=== PATIENT | female | born 1955 | race Caucasian/White ===

== ENCOUNTER 2019-08-28 20:29 | Emergency (ER) | payer OTHER, SELFPAY ==
[2019-08-28 20:34] VITALS: BP 134/100; PULSE 76; RESP 16; TEMP 36.5; O2SAT 98
--- NOTE | 2019-08-28 21:04 | ED.ALLEREA ---
HPI - Allergic Reaction General Chief complaint: Allergic Reaction Stated complaint: itching Time Seen by Provider: 08/28/19 21:03 Source: patient and RN notes reviewed Mode of arrival: other Limitations: no limitations History of Present Illness HPI narrative: Pt is a 64 y/o female who presents to the ED with c/o pruritus on her neck, back, hands, and right eye for the past two days (08/26/19). Pt denies taking Benadryl for her sx d/t the medications that she is taking. She notes that she has been using hydrocortisone cream, but has had no relief of her sx. Pt denies using any new soaps, detergents, and medications. Pt notes that she had [place] food last night and is worried about the MSGs. She notes that she drank a lot of water today. Pt denies having a hx of an allergic reaction. Pt also denies calling her PCP about her sx. Pt also report decreased sleep, but denies hives, vomiting, diarrhea, and SOB. complaint: other (pruritus) Onset (ago): day(s) (2) Exposure: unknown Symptoms: other (decresed sleep) Treatment prior to arrival: other (hydrocortisone cream) Previous Allergic Reaction History: none Related Data Allergies Allergy/AdvReac Type Severity Reaction Status Date / Time iodine Allergy Severe THRAOT AND Verified 08/28/19 21:17 EYES SWELL SHELLFISH Allergy Severe THRAOT AND Uncoded 08/28/19 21:17 EYES SWELL Review of Systems Review of Systems: Narrative: CONSTITUTIONAL: Reports decreased sleep. RESPIRATORY: Denies dyspnea. GASTROINTESTINAL: Denies vomiting and diarrhea. SKIN: Reports pruritus. Denies urticaria. All systems reviewed & are unremarkable except as noted in HPI and below PMFSH Past Medical History Medical History (Updated 08/28/19 @ 22:24 by Anastasia Ontiveros MD) Arthritis Bronchitis CAD (coronary artery disease) History of angina HTN (hypertension) Hyperlipidemia Left wrist fracture Peripheral neuropathy Systemic lupus erythematosus Type II diabetes mellitus UTI (urinary tract infection) Surgical History Surgical History (Updated 08/28/19 @ 21:44 by Herminia Frederick) History of cardiac catheterization History of hysterectomy Hx of appendectomy Hx of breast reduction, elective Hx of CABG x2, 2002 Stented coronary artery x2 Family History Family History (Updated 03/21/10 @ 15:21 by DOCTOR UNKNOWN) Other Diabetes mellitus Hypertension Social History Social History (Updated 08/28/19 @ 21:45 by Herminia Frederick) Smoking packs per day: 2 Smoking cigarettes per day: 40.0 Years smoked: 31 Smoking pack-years: 62.00 Smoking status: Former smoker Tobacco type: cigarettes Second hand tobacco smoke exposure: Yes Smoking end date: 07/19/02 Alcohol intake: current Exam Narrative: Exam Narrative: GENERAL: Well-appearing, well-nourished, and in no acute distress. HEAD: Normocephalic, atraumatic. EYES: PERRLA and EOMI. ENT: Nares clear, no rhinorrhea or epistaxis. Mucous membranes moist. NECK: Supple. CHEST: No respiratory distress. Lungs are clear without wheezing. EXTREMITIES: Normal range of motion. No edema. SKIN: Warm, dry, no rash. Scattered patches of erythema overlyng her chest, back, right hand, and right eye.No urticaria. Slight erythema of right upper eyelid. No eyelid edema. NEURO: No focal deficits. Alert and oriented X3. Course Course Emergency Course: Patient presented for evaluation of itchiness, erythema to scattered parts of her body. No new nidus of allergic reaction that we can identify. No new soaps, lotions, detergents, no new exposures. Patient states she had [place] food 2 days ago after her symptoms that began. Unknown if perhaps this is due to something that she ate, but patient has no sign of anaphylaxis, no 2 system involvement. No airway compromise. Patient was given oral medication for symptom management with resolution in her symptoms. At the time of reassessment, erythema of the eyelid, hand, are gone. Patient will b
[2019-08-28 21:19] VITALS: BP 134/52; PULSE 68; RESP 15; TEMP 36.4; O2SAT 98
[2019-08-28] MEDS: predniSONE 20 MG TABLET 60 MG PO (21:35)
[2019-08-28] MEDS: FAMOTIDINE 20 MG TABLET PO (21:35)
[2019-08-28 22:35] VITALS: BP 143/51; PULSE 63; RESP 18; O2SAT 97
== END 2019-08-28 22:37 | disposition home or self-care (01) ==
PROVIDERS: Emergency Provider Emergency Medicine; PCP Family Medicine Adolescent Medicine
DX: T78.40XA Allergy, unspecified, initial encounter (principal); F17.210 Nicotine dependence, cigarettes, uncomplicated; M19.90 Unspecified osteoarthritis, unspecified site; I25.10 Atherosclerotic heart disease of native coronary artery without angina pectoris; I10 Essential (primary) hypertension; E78.5 Hyperlipidemia, unspecified; Z95.1 Presence of aortocoronary bypass graft
CPT/HCPCS: 99283; A9270; J7512

== ENCOUNTER 2019-09-22 08:59 | Outpatient (CLI) | payer OTHER, SELFPAY ==
--- NOTE | ~2019-09-22 | XR_ITS ---
EXAMINATION: XR hip LT min 2V DATE: 09/22/2019 09:21 INDICATION: Left hip pain. TECHNIQUE: 3 views of left hip were obtained. COMPARISON: Pelvis radiographs 03/21/2010 FINDINGS: There is lower lumbar dextrocurvature and severe spondylosis. No fracture. There is severe left hip osteoarthritis. IMPRESSION: 1. Severe left hip osteoarthritis. Reviewed, dictated and finalized at location A. [employer]
== END 2019-09-22 09:00 | disposition home or self-care (01) ==
LOC: ANHIMG 09:03
PROVIDERS: PCP Family Medicine Adolescent Medicine; Visit Provider Family Medicine Adolescent Medicine
DX: M25.552 Pain in left hip (principal); M16.12 Unilateral primary osteoarthritis, left hip
CPT/HCPCS: 73502

== ENCOUNTER 2019-10-09 12:40 | Outpatient (CLI) | payer OTHER, SELFPAY ==
--- NOTE | ~2019-10-09 | MR_ITS ---
EXAMINATION: MR hip LT wo con DATE: 10/09/2019 13:55 INDICATION: Left hip pain TECHNIQUE: Magnetic resonance imaging (MRI) of the affected hip was performed without intravenous co ntrast. Sequences included full-field axial PD-weighted FS FSE and T1-weighted FSE, coronal of the pe lvis with PD-weighted FS FSE, small field of view of the affected hip with axial PD-weighted FS FSE, sagittal PD-weighted FS FSE and coronal PD weighted FS FSE. Additional radial T1-weighted FGR orient ed orthogonal to the acetabular rim were obtained for evaluation of the labrum. COMPARISON: None FINDINGS: Bones/labrum/cartilage: No fracture, avascular necrosis or pathologic marrow replacing process. Severe left hip osteoarthriti s with nonuniform joint space narrowing along the cephalad aspect of the joint space with essentially [id number] apposition along the superolateral to anterosuperior margins of the joint space. Labral degeneration with macerated appearance to the anterosuperior labrum. There are large marginal osteop hytes which appear to replace significant portions of the more posterior labrum. There is subarticula r edema at the anterosuperior acetabulum with subarticular cystic change at the anteroinferior left a cetabulum. Additional prominent subarticular edema along the posterior superior aspect of the left fe moral head. Small marginal osteophytes along the left femoral head. Mild lumbar levoscoliosis with se ilene spondylosis. Fluid: Small left hip joint effusion. Physiologic amount fluid at the right hip. Soft tissues: Symmetric muscle bulk and signal in the pelvis and visualized proximal thighs. There is symmetric mil d fatty atrophy of the bilateral gluteus huan muscles. The iliopsoas, gluteal and proximal hamstri ng tendons are normal. Limited evaluation of visceral organs of the pelvis is unremarkable. Small fat -containing umbilical hernia. No pathologically enlarged pelvic/inguinal lymphadenopathy. IMPRESSION: 1. Severe left hip osteoarthritis with chronic degenerative tearing of the acetabular labrum and like ly reactive small left hip joint effusion. Reviewed, dictated and finalized at location A. IMPRESSION: 1. Severe left hip osteoarthritis with chronic degenerative tearing of the acet abular labrum and likely reactive small left hip joint effusion.
== END 2019-10-09 12:41 | disposition home or self-care (01) ==
LOC: ANHIMG 12:42
PROVIDERS: PCP Family Medicine Adolescent Medicine; Visit Provider Orthopaedic Surgery
DX: M16.12 Unilateral primary osteoarthritis, left hip (principal)
CPT/HCPCS: 73721

== ENCOUNTER 2019-10-31 10:05 | Outpatient (CLI) | payer OTHER, SELFPAY ==
--- NOTE | ~2019-10-31 | US_ITS ---
EXAMINATION:US venous doppler LE LT INDICATION:Localized swelling TECHNIQUE: Multiple grayscale, color flow and Doppler images of the left lower extremity deep venous systems were obtained and reviewed. COMPARISON:Ultrasound dated 11/28/2018 FINDINGS: The common femoral, superficial femoral and popliteal veins demonstrate normal respiratory variation, augmentation and compressibility. Color flow is also seen within the posterior tibial, pe roneal, greater saphenous and profunda veins. IMPRESSION: 1: No lower extremity deep venous thrombosis. Reviewed, dictated and finalized at location A.
== END 2019-10-31 10:06 | disposition home or self-care (01) ==
PROVIDERS: PCP Family Medicine Adolescent Medicine; Visit Provider Orthopaedic Surgery
DX: M79.605 Pain in left leg (principal); R22.42 Localized swelling, mass and lump, left lower limb
CPT/HCPCS: 93971

== ENCOUNTER 2020-03-05 15:30 | Outpatient (RCR) | payer OTHER, SELFPAY ==
--- NOTE | 2020-01-30 10:11 | PTOPEVAL ---
PHYSICAL THERAPY EVALUATION AND PLAN OF TREATMENT 01-30-2020 The PT evaluation was completed for the diagnosis of s/p L THR. Her plan of treatment is scheduled for 2x/wk for 5 weeks. Thank you for referring Katia Saleh I to [facility] Please review, sign, date and return this plan of care [place]. I agree with and certify that the following plan of care is medically necessary. Referring Physician Date Attending Provider: Cong Izaguirre MD *PT Outpatient Evaluation Start: 01/30/20 09:01 Document 01/30/20 08:55 NATALY (Rec: 01/30/20 10:11 NATALY [id number]) Outpatient Past Medical History Past Medical History Source of Past Medical History Patient Neurological History Hx Neurological Disorders No Significant History Cardiovascular History Hx Cardiac Surgery Yes: CABG Hx Coronary Stent Yes: 2015 Hx Hypertension Yes: meds Respiratory History Hx Other Respiratory Disorders Yes: SOB with exertion Gastrointestinal History Hx Gastrointestinal Disorders No Significant History Genitourinary History Hx Genitourinary Disorders No Significant History Musculoskeletal History Hx Arthritis Yes: in back Hx Back Pain Yes: chronic back pain; previous chiropractor therapy Hx Joint Replacement Yes: this surgery L THR Hx Other Musculoskeletal Disorders Yes: have been told need back surgery ~ 7yr ago Hematological History Hx Hematological Disorders No Significant History Endocrine History Hx Diabetes Yes: meds- insulin control HEENT History Hx HEENT Disorders No Significant History Other History Hx Other Surgeries Yes: B breast reduction Evaluation Information Problem Diagnosis s/p L THR Onset November Subjective Information had [facility] PT,OT services and Query Text:As Reported By Patient/ nursing; have been discharged Family [facility] HEP: was doing exercises, now just working on walking ; no hip precautions any longer; first night home from hospital, fell trying to get out of bed, getting up to go to the bathroom-- trying to help, had to call ambulance to get her up off floor; after that, slept in recliner due to to taller bed; Prior Level of Function Activity Level (Last 3 Months) 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
--- NOTE | 2020-02-20 15:59 | PCPTNOTE ---
Patient called & cancelled scheduled appointment this date due to illness.
--- NOTE | 2020-03-05 16:04 | PTOPEVAL ---
PHYSICAL THERAPY DISCHARGE 03-05-2020January has received 10 PT sessions, from January 29 to today, s/p L THR. Compared to the initial evaluation, she has improved in all areas--LE strength, hip flex and extension ROM, transfer, gait and balance. She is independent with her home exercises and agrees to discharge from PT services at this time. The goals were partially achieved; did not achieve hip flexibility, pain rating at lowest number, continues to have spasm over anterior hip and reported sleeping tolerance. Thank you for referring Katia Saleh to [facility] Please review, sign, date and return this discharge PACHECO. I agree with and certify that the following plan of care is medically necessary. Referring Physician Date Attending Provider: Cong Izaguirre, *PT Outpatient Discharge Start: 01/30/20 09:01 Document 03/05/20 15:36 NATALY (Rec: 03/05/20 16:04 NATALY [id number]) Subjective Information Celina reports: hip is better Query Text:As Reported By Patient/ and improved- less pain, leg Family stronger, can do things on my own now--in/out bed, showering , car; only thing still need help with putting on L sock; back to work; use cane or wheeled walker; have been into basement at home; feels like she is ready to be discharged from PT and to continue with her leg exercises on her own; Pain Assessment Timing of Pain Assessment Timing of Pain Assessment Assessment Pain Scale Pain Scale Used Numeric (1 - 10) Self Report Pain Assessment Left Hip(s) Reported Pain Level 0 Pain Frequency Acute Lowest Pain Intensity 0 Greatest Pain Intensity 4 Other Pain Aggravating Factors lie on L side, awaken after sleeping ~ 1 &1/2 hours, sitting 2-3 hours; Other Alleviating Interventions no pain meds; occasional use of ice Pain Score Pain Score 0: Self Report Lower Extremity Range of Motion General Lower Extremity Range of Motion Gross Lower Extremity Range of Motion supine hip flexion 80' with Comments increase pain hip; extension ( -10') with pressure and pulling; Lower Extremity Muscle Strength Testing General Lower Extremity Strength Gross Lower Extremity Strength L LE: supine: SLR x 30 reps; bridge x 25 reps; side lying hip abduction to 10' x 20 reps ; supine/sit transfer indep, without laboring to move legs; Transfer Assessment Fl
== END 2020-03-06 12:38 | disposition home or self-care (01) ==
LOC: ANHPT 15:30
PROVIDERS: PCP Family Medicine Adolescent Medicine; Visit Provider Orthopaedic Surgery Adult Reconstructive Orthopaedic Surgery
DX: Z47.1 Aftercare following joint replacement surgery (principal); Z96.642 Presence of left artificial hip joint
CPT/HCPCS: 97110; 97116; 97161

== ENCOUNTER 2020-04-17 06:54 | Outpatient (CLI) | payer OTHER, SELFPAY ==
[2020-04-17 07:53] LABS: Hemoglobin A1C 5.9 % (<5.7)
== END 2020-04-17 06:55 | disposition home or self-care (01) ==
PROVIDERS: PCP Family Medicine Adolescent Medicine; Visit Provider Family Medicine Adolescent Medicine
DX: E78.00 Pure hypercholesterolemia, unspecified (principal); I10 Essential (primary) hypertension; E11.42 Type 2 diabetes mellitus with diabetic polyneuropathy
CPT/HCPCS: 36415; 83036

== ENCOUNTER 2020-04-20 08:31 | Outpatient (CLI) | payer OTHER, MEDICARE, SELFPAY ==
[2020-04-20 09:08] LABS: Alanine Aminotransferase 17 U/L (4-35); Albumin Level 4.1 g/dL (3.5-5.1); Alkaline Phosphatase 77 U/L (38-126); Anion Gap 10 mmol/L (8-16); Aspartate Amino Transferase 24 U/L (14-36); Bilirubin,Total 0.2 mg/dL (0.2-1.3); Blood Urea Nitrogen 20 mg/dL (7-17); Calcium 9.8 mg/dL (8.4-10.2); Carbon Dioxide 28 mmol/L (22-30); Chloride 105 mmol/L (98-107); Cholesterol 145 mg/dL (0-200); Estimated Glomerular Filt Rate 45; Glucose 127 mg/dL (65-105); HDL Direct 46 mg/dL; Potassium 4.6 mmol/L (3.4-5.0); Sodium 143 mmol/L (137-145); Triglycerides 140 mg/dL (<150)
[2020-04-20 09:18] LABS: LDL Cholesterol Direct 69 mg/dL
== END 2020-04-20 08:32 | disposition home or self-care (01) ==
LOC: ANHLAB 08:34
PROVIDERS: PCP Family Medicine Adolescent Medicine; Visit Provider Family Medicine Adolescent Medicine
DX: I10 Essential (primary) hypertension (principal); E78.00 Pure hypercholesterolemia, unspecified; E11.42 Type 2 diabetes mellitus with diabetic polyneuropathy
CPT/HCPCS: 36415; 80053; 80061

== ENCOUNTER 2020-04-22 11:22 | Outpatient (CLI) | payer OTHER, SELFPAY ==
--- NOTE | ~2020-04-22 | XR_ITS ---
XR lumbar spine 2-3V DATE: 04/22/2020 11:50 INDICATION: Low back pain; no injury. TECHNIQUE: AP, lateral, coned lateral lumbosacral views COMPARISON: 09/05/2012 lumbar spine FINDINGS: There is moderate levoscoliosis of the lower thoracic and lumbar spine. There is severe degenerative disc disease throughout the lumbar and lumbosacral spine. There is degenerative change at the apophyseal joints with associated grade 1 anterolisthesis at L4-5 . The sacroiliac joints are intact, with some degenerative change. Diffuse idiopathic skeletal hyperostosis of the thoracic spine. There is extensive calcification of the abdominal aorta and iliac arteries; no abdominal aortic aneur ysm. A r hip prosthesis is noted on the lateral view. IMPRESSION: Severe degenerative disc disease throughout the lumbar and lumbosacral spine Moderate levoscoliosis of the thoracolumbar spine Reviewed, dictated and finalized at location A. IMPRESSION: Severe degenerative disc disease throughout the lumbar and lumbosac ral spine Moderate levoscoliosis of the thoracolumbar spine
== END 2020-04-22 11:23 | disposition home or self-care (01) ==
PROVIDERS: PCP Family Medicine Adolescent Medicine; Visit Provider Family Medicine Adolescent Medicine
DX: M54.5 Low back pain (principal)
CPT/HCPCS: 72100

== ENCOUNTER 2020-05-12 11:50 | Emergency (ER) | payer OTHER, MEDICARE, SELFPAY ==
[2020-05-12 12:06] VITALS: BP 133/80; PULSE 63; RESP 16; TEMP 37.1; O2SAT 99
--- NOTE | 2020-05-12 12:27 | ED.BACK ---
HPI - Back Pain/Injury General Chief Complaint: Back Pain/Injury Stated Complaint: lower back pain Time Seen by Provider: 05/12/20 12:14 Source: patient and RN notes reviewed Mode of arrival: ambulatory Limitations: no limitations History of Present Illness HPI Narrative: Patient presents today complaining of a 3-day history of right-sided mid back pain that worsens when she moves around, but decreases when she is at rest. Denies radiation of pain, loss of bowel or bladder control, numbness or tingling in the extremities. Patient does have a history of some chronic low back pain, but states this is different. Currently rates her pain 1/10 at rest, but states after she has been moving around it can, take my breath away. She does take Celebrex daily. She also has as needed [place]. Her last dose of [place] was yesterday morning, but it has not been providing much relief. Denies urinary symptoms to include dysuria, hematuria, urgency, frequency, abdominal pain. MD elicited complaint: back pain Related Data Home Medications Medication Instructions Recorded Confirmed aspirin 81 mg tablet,delayed 81 mg PO DAILY 10/03/19 05/12/20 release celecoxib 200 mg capsule 200 mg PO DAILY 10/03/19 05/12/20 epinephrine 0.3 mg/0.3 mL 0.3 mg IM ONCE PRN 10/03/19 05/12/20 injection, auto-injector fosinopril 40 mg tablet 40 mg PO DAILY 10/03/19 05/12/20 furosemide 80 mg tablet 80 mg PO QAM 10/03/19 05/12/20 gabapentin 600 mg tablet 600 mg PO DAILY 10/03/19 05/12/20 insulin glargine 100 unit/mL 100 unit SUB-Q DAILY 10/03/19 05/12/20 subcutaneous solution metformin 1,000 mg tablet 1,000 mg PO DAILY 10/03/19 05/12/20 nebivolol 20 mg tablet 20 mg PO DAILY 10/03/19 05/12/20 nifedipine 90 mg tablet,extended 90 mg PO DAILY 10/03/19 05/12/20 release nitroglycerin 0.4 mg sublingual 0.4 mg SUBLINGUAL Q5M PRN 10/03/19 05/12/20 tablet omeprazole 20 mg capsule,delayed 20 mg PO DAILY 10/03/19 05/12/20 release simvastatin 20 mg tablet 20 mg PO DAILY 10/03/19 05/12/20 sitagliptin 100 mg tablet 100 mg PO DAILY 10/03/19 05/12/20 Allergies Allergy/AdvReac Type Severity Reaction Status Date / Time iodine Allergy Severe Anaphylaxis Verified 05/12/20 12:16 SHELLFISH Allergy Severe Anaphylaxis Uncoded 05/12/20 12:16 Review of Systems Review of Systems: Narrative: CONSTITUTIONAL: Denies body aches, fever, chills, or sweats. EYES: Denies visual changes, redness, or discharge. ENT: Denies rhinorrhea, congestion, sore throat, or otalgia. CARDIOVASCULAR: Denies chest pain, palpitations, or edema. RESPIRATORY: Denies cough or dyspnea. GASTROINTESTINAL: Denies abdominal pain, nausea, vomiting, or diarrhea. GENITOURINARY: Denies dysuria or hematuria. SKIN: Denies rash, itching, or wounds. MUSCULOSKELETAL: Denies joint pain, or myalgia. + Right mid back pain NEUROLOGIC: Denies headache, numbness, tingling, or weakness. PSYCH: Denies depression or anxiety. [facility] Past Medical History Medical History (Updated 05/12/20 @ 12:29 by Julianna Ramirez, [facility], ) Arthritis Bronchitis CAD (coronary artery disease) Diabetes A1C=6.7 on 12/17/2018 Heart attack Heart disease History of angina HTN (hypertension) Hyperlipidemia Left wrist fracture Peripheral neuropathy Systemic lupus erythematosus Type II diabetes mellitus UTI (urinary tract infection) Surgical History Surgical History History of cardiac catheterization History of hysterectomy Hx of appendectomy Hx of breast reduction, elective Hx of CABG x2, 2003 Stented coronary artery x2 Family History Family History Father Heart disease Grandparent Diabetes mellitus Sibling Diabetes mellitus Cancer Heart disease Other Hypertension Social History Social History Smoking packs per day: 2 Smoking cigarettes per day: 40.0 Y
== END 2020-05-12 12:34 | disposition home or self-care (01) ==
PROVIDERS: Emergency Provider Nurse Practitioner; PCP Family Medicine Adolescent Medicine
DX: M62.830 Muscle spasm of back (principal); Z87.891 Personal history of nicotine dependence; M19.90 Unspecified osteoarthritis, unspecified site; E11.9 Type 2 diabetes mellitus without complications; I25.2 Old myocardial infarction; I25.110 Atherosclerotic heart disease of native coronary artery with unstable angina pectoris; I10 Essential (primary) hypertension; E78.5 Hyperlipidemia, unspecified; E11.42 Type 2 diabetes mellitus with diabetic polyneuropathy; M32.9 Systemic lupus erythematosus, unspecified; Z95.5 Presence of coronary angioplasty implant and graft; Z79.82 Long term (current) use of aspirin
CPT/HCPCS: 99213; G0463

== ENCOUNTER 2021-02-04 10:00 | Observation (INO) | payer OTHER, SELFPAY ==
[2021-02-04] VITALS (24 sets, daily range): BP systolic 109–166; BP diastolic 46–90; PULSE 58–78; RESP 12–24; TEMP 36.6; O2SAT 90–100; BMI 47.5
--- NOTE | ~2021-02-04 | XR_ITS ---
XR chest 2V DATE: 02/04/2021 10:29 INDICATION: Chest pain TECHNIQUE: AP and lateral views COMPARISON: 12/31/2015 AP and lateral chest FINDINGS: Status post sternotomy and coronary bypass graft surgery. Heart size appears within normal range. No pulmonary infiltrate or consolidation, pleural effusion or pulmonary vascular congestion or pneumothorax. Degenerative spurring of the thoracic spine. IMPRESSION: No active cardiopulmonary disease Reviewed, dictated and finalized at location A.
--- NOTE | 2021-02-04 10:19 | ECG_ITS ---
Measurements Intervals May Rate: 74 P: 59 OR: 168 QRS: -61 QRSD: 127 T: 63 QT: 409 QTc: 455 Interpretive Statements SINUS RHYTHM LEFT BUNDLE BRANCH BLOCK BASELINE ARTIFACT- II, V1, V3-V6 ABNORMAL ECG Electronically Signed On 02-04-2021 10:22:39 CDT by Ronaldo Pressley D.O.
[2021-02-04 10:33] LABS: Basophils Absolute Auto 0.1 K/mm3 (0.0-0.1); Basophils Percent Auto 0.6 % (0.2-1.2); Eosinophils Absolute Auto 0.4 K/mm3 (0-0.3); Eosinophils Percent Auto 3.3 % (0-4.4); Hematocrit 39.1 % (37.0-47.0); Hemoglobin 12.4 g/dL (12.0-15.0); Immature Granulocyte Absolute 0.05 K/mm3 (0.00-0.031); Immature Granulocyte Percent A 0.4 % (0-0.5); Lymphocytes Absolute Auto 3.38 K/mm3 (0.9-3.2); Lymphocytes Percent Auto 25.8 % (18.3-44.2); Mean Corpuscular HGB Conc 31.7 g/dl (32-36); Mean Corpuscular Hemoglobin 27.7 pg (26-34); Mean Corpuscular Volume 87.5 fl (80-100); Mean Platelet Volume 9.8 fl (7.4-10.4); Monocytes Absolute Auto 1.3 K/mm3 (0.1-0.6); Monocytes Percent Auto 10.1 % (2.6-8.5); Neutrophils Absolute Auto 7.8 K/mm3 (1.3-6.7); Neutrophils Percent Auto 59.8 % (45.5-73.1); Platelet Count Result 293 k/mm3 (150-375); Red Blood Count 4.47 M/mm3 (4.2-5.4); Red Cell Distribution Width 15.6 % (11.5-14.5); White Blood Count 13.1 K/mm3 (4.5-10.0)
[2021-02-04 10:44] LABS: Anion Gap 15 mmol/L (8-16); Blood Urea Nitrogen 20 mg/dL (7-17); Carbon Dioxide 21 mmol/L (22-30); Chloride 103 mmol/L (98-107); Estimated CRCL calculation 41 ml/min; Estimated Glomerular Filt Rate 41; Glucose 179 mg/dL (65-110); Potassium 4.3 mmol/L (3.4-5.0); Sodium 139 mmol/L (137-145)
[2021-02-04 10:45] LABS: Partial Thromboplastin Time 31.3 SECONDS (22.3-36.8); Prothrombin Time 12.8 Seconds (11.1-14.7)
[2021-02-04 10:55] LABS: Troponin I < 0.012 ng/mL (0.000-0.034)
[2021-02-04] MEDS: ASPIRIN 81 MG CHEWABLE TABLET 324 MG PO (10:59)
--- NOTE | 2021-02-04 11:03 | ED.CHESTPAIN ---
HPI - Chest Pain General Chief Complaint: Chest Pain Stated Complaint: chest pain Time Seen by Provider: 02/04/21 11:03 History of Present Illness HPI narrative: 66 yo female w/ h/o CAD, CABG, DM, htn presents to the ED for chest pain. SHe reports that she has had sharp chest pain across the anterior chest since last night. Severe. Radiated to left arm. Associated with nausea and intermittent SOFt. She thought it was indigestion, but also says that it feels a lot like previous [place]. Improved somewhat with nitroglycerine. Related Data Home Medications Medication Instructions Recorded Confirmed aspirin 81 mg tablet,delayed 81 mg PO DAILY 10/03/19 05/12/20 release epinephrine 0.3 mg/0.3 mL 0.3 mg IM ONCE PRN 10/03/19 05/12/20 injection, auto-injector fosinopril 40 mg tablet 40 mg PO DAILY 10/03/19 05/12/20 furosemide 80 mg tablet 80 mg PO QAM 10/03/19 05/12/20 gabapentin 600 mg tablet 600 mg PO DAILY 10/03/19 05/12/20 insulin glargine 100 unit/mL 100 unit SUB-Q DAILY 10/03/19 05/12/20 subcutaneous solution metformin 1,000 mg tablet 1,000 mg PO DAILY 10/03/19 05/12/20 nebivolol 20 mg tablet 20 mg PO DAILY 10/03/19 05/12/20 nifedipine 90 mg tablet,extended 90 mg PO DAILY 10/03/19 05/12/20 release nitroglycerin 0.4 mg sublingual 0.4 mg SUBLINGUAL Q5M PRN 10/03/19 05/12/20 tablet simvastatin 20 mg tablet 20 mg PO DAILY 10/03/19 05/12/20 sitagliptin 100 mg tablet 100 mg PO DAILY 10/03/19 05/12/20 Allergies Allergy/AdvReac Type Severity Reaction Status Date / Time iodine Allergy Severe Anaphylaxis Verified 02/04/21 10:29 SHELLFISH Allergy Severe Anaphylaxis Uncoded 05/12/20 12:16 Review of Systems Review of Systems: All systems reviewed & are unremarkable except as noted in HPI and below Constitutional: Constitutional: Denies fever(s) ENT: Denies sore throat Cardiovascular: Cardiovascular: Reports as per HPI Gastrointestinal: Gastrointestinal: Reports as per HPI, Denies abdominal pain, Reports nausea and Denies vomiting Genitourinary: Genitourinary: Reports no additional female genitourinary complaints Neurologic: Reports system reviewed and no additional complaints, except as documented [facility] Past Medical History Medical History (Updated 02/04/21 @ 16:33 by Ravi Fraga MD) Arthritis Bronchitis CAD (coronary artery disease) Diabetes A1C=6.7 on 12/17/2018 Heart attack Heart disease History of angina HTN (hypertension) Hyperlipidemia Left wrist fracture Peripheral neuropathy Systemic lupus erythematosus Type II diabetes mellitus UTI (urinary tract infection) Surgical History Surgical History History of cardiac catheterization History of hysterectomy Hx of appendectomy Hx of breast reduction, elective Hx of CABG x2, 2002 Stented coronary artery x2 Family History Family History Father Heart disease Grandparent Diabetes mellitus Sibling Diabetes mellitus Cancer Heart disease Other Hypertension Social History Social History Smoking packs per day: 2 Smoking cigarettes per day: 40.0 Years smoked: 31 Smoking pack-years: 62.00 Smoking status: Former smoker Tobacco type: cigarettes Second hand tobacco smoke exposure: Yes Smoking end date: 07/19/02 Alcohol intake: current Alcohol use details: Occasional Additional living arrangements comments: Additional occupation/education comments: [employer] Gender identity (if verbalized by the patient): Female Exam Const: General: no acute distress and alert Nutritional Appearance: obese Orientation/consciousness: patient oriented x3 HENMT: Head: normal to inspection Chest: Chest palpation & inspection: tenderness Resp: Effort & Inspection: normal respiratory effort Auscultation: clear to aus
[2021-02-04] MEDS: MORPHINE SULFATE (*CRX) 2 MG/ML INJ IV PUSH (11:47)
[2021-02-04 14:06] LABS: Troponin I < 0.012 ng/mL (0.000-0.034)
--- NOTE | 2021-02-04 14:34 | PC.NURSE ---
pt ambulated to bathroom with no difficulty
[2021-02-04] MEDS: MORPHINE SULFATE (*CRX) 4 MG/ML INJ IV PUSH (15:45)
--- NOTE | 2021-02-04 16:03 | PC.NURSE ---
Food ordered at 16:03
--- NOTE | 2021-02-04 16:21 | PC.NURSE ---
ordered patient dinner tray
[2021-02-04 17:10] LABS: Troponin I < 0.012 ng/mL (0.000-0.034)
--- NOTE | 2021-02-04 18:14 | PC.NURSE ---
Took report from ED nurse Mari 18:12
--- NOTE | 2021-02-04 18:44 | ADMGEN ---
This patient, Katia Saleh, was admitted to IMU Room 211-01. Patient/family oriented to hospital policies and general routines including ID bracelet, bed and alarms, visiting hours, pain management, procedures, bathroom and other care routines, personal items, smoking policy, room service/diet, and visiting hours. Information on how to activate the Rapid Response Team has been discussed. Patient/Family are encouraged to report perceived risks to care and to ask questions if they do not understand what they are told or what they should do.
[2021-02-04 21:09] LABS: Glucose Point of Care 138 mg/dl (65-105)
--- NOTE | 2021-02-04 23:03 | PM.IMHP ---
H&P: HPI History of Present Illness Date/Time: 02/04/21 23:03Humberto is a 66-year-old female patient was past medical history of having coronary artery disease with a total of 3 stents in 2 bypass surgery, diabetes type 2, hypertension, and acid reflux. The patient stated that her acid reflux has not been very well controlled with her omeprazole and she usually winds up taking Frances-[place] chewables as well. The patient stated approximately week or 2 ago she stopped taking her omeprazole on she noticed that she started having more heartburn. The patient developed some sharp chest pain across her anterior chest since last night. Radiated to her left arm. She said she had some nausea and intermittent chest pain. She thought it was indigestion but then it also feels like it was all heart attack as well. Her symptoms did improve somewhat with the nitroglycerin. The patient tells me that when she starts eating Ricardo crackers she noticed that she had some pain in herself gets when she was eating. The patient was given an aspirin, morphine and GI cocktail in the emergency she could not tell which thing relieved her chest pain because she said she was given them all at the same time. 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 Troponins have been negative. Chest x-ray was read as no acute cardiopulmonary disease. Creatinine is 1.3 which is typically 1.2. Glucose is 179 And 138. EKG was sinus rhythm left bundle-branch block baseline artifact. Patient is being admitted to observation status on the date of service of 02/04/2021. Chief Complaint: chest pain Review of Systems Review of Systems: All systems reviewed & are unremarkable except as noted in HPI and below Constitutional: Constitutional: Reports as per HPI and Reports no additional constitutional complaints Eyes: Eyes: Reports as per HPI and Reports no additional eye complaints ENT: Reports system reviewed and no additional complaints, except as documented and Reports Normal hearing present Cardiovascular: Cardiovascular: Reports no additional cardiovascular complaints Respiratory: Respiratory: Reports no additional respiratory complaints and Reports no additional respiratory complaints Gastrointestinal: Gastrointestinal: Reports as per HPI and Reports no additional gastrointestinal complaints Musculoskeletal: Musculoskeletal: Reports no additional musculoskeletal complaints Integumentary/Breasts: Skin/Breast: Reports system reviewed and no additional complaints, except as docu and Reports as per HPI Neurologic: Reports system reviewed and no additional complaints, except as documented, Reports as per HPI and Reports Normal hearing present Psychiatric: Psychiatric: Reports no additional psychiatric complaints and Reports as per HPI Endocrine: Endocrine: Reports no additional endocrine complaints Hematologic/Lymphatic: Hematologic/Lymphatic: Reports no additional hematologic/lymphatic complaints Allergic/Immunologic: Allergic/Immunologic: Reports no additional allergic/immunologic complaints [facility] Past Medical History Medical History (Updated 02/04/21 @ 23:13 by Katiana Benitez NP) Arthritis Bronchitis CAD (coronary artery disease) Chronic GERD Diabetes A1C=6.7 on 12/17/2018 Heart attack Heart disease History of angina HTN (hypertension) Hyperlipidemia Left wrist fracture Peripheral neuropathy Type II diabetes mellitus UTI (urinary tract infection) Surgical History Surgical History History of cardiac catheterization History of hysterectomy Hx of appendectomy Hx of breast reduction, elective Hx of CABG x2, 2002 Stented coronary artery x2 Family History Family History Father Heart disease Hypertension Acute myocardial infarction Grandparent Diabetes mellitus Sibling Diabetes mellitus Heart disease Cancer Sibling Cancer Soc
[2021-02-05] VITALS (7 sets, daily range): BP systolic 114–143; BP diastolic 51–80; PULSE 61–71; RESP 14–20; TEMP 36.6–37; O2SAT 92–99
[2021-02-05 05:53] LABS: Basophils Absolute Auto 0.1 K/mm3 (0.0-0.1); Basophils Percent Auto 0.6 % (0.2-1.2); Eosinophils Absolute Auto 0.4 K/mm3 (0-0.3); Eosinophils Percent Auto 3.9 % (0-4.4); Hematocrit 38.8 % (37.0-47.0); Hemoglobin 11.8 g/dL (12.0-15.0); Immature Granulocyte Absolute 0.03 K/mm3 (0.00-0.031); Immature Granulocyte Percent A 0.3 % (0-0.5); Lymphocytes Absolute Auto 2.62 K/mm3 (0.9-3.2); Lymphocytes Percent Auto 29.3 % (18.3-44.2); Mean Corpuscular HGB Conc 30.4 g/dl (32-36); Mean Corpuscular Hemoglobin 27.4 pg (26-34); Monocytes Percent Auto 11.1 % (2.6-8.5); Neutrophils Absolute Auto 4.9 K/mm3 (1.3-6.7); Neutrophils Percent Auto 54.8 % (45.5-73.1); Platelet Count Result 253 k/mm3 (150-375); Red Blood Count 4.31 M/mm3 (4.2-5.4); Red Cell Distribution Width 15.5 % (11.5-14.5)
[2021-02-05 05:59] LABS: Lactic Acid Reflex 1.1 mmol/L (0.7-2.1)
[2021-02-05 06:23] LABS: Hemoglobin A1C 6.7 % (<5.7)
[2021-02-05 06:24] LABS: Alanine Aminotransferase 21 U/L (4-35); Alkaline Phosphatase 80 U/L (38-126); Anion Gap 7 mmol/L (8-16); Aspartate Amino Transferase 29 U/L (14-36); Bilirubin,Total 0.3 mg/dL (0.2-1.3); Blood Urea Nitrogen 22 mg/dL (7-17); Calcium 9.5 mg/dL (8.4-10.2); Carbon Dioxide 27 mmol/L (22-30); Chloride 104 mmol/L (98-107); Estimated CRCL calculation 42 ml/min; Estimated Glomerular Filt Rate 41; Glucose 132 mg/dL (65-110); Lactate Dehydrogenase 379 U/L (313-618); Lipase 545 U/L (23-300); Magnesium 2.1 mg/dL (1.6-2.3); Phosphorus 4.7 mg/dL (2.5-4.5); Potassium 4.3 mmol/L (3.4-5.0); Sodium 138 mmol/L (137-145)
[2021-02-05 07:59] LABS: Glucose Point of Care 135 mg/dl (65-105)
[2021-02-05] MEDS: NEBIVOLOL HCL 5 MG TABLET 20 MG PO (09:54)
--- NOTE | 2021-02-05 09:54 | PM.CNCAR ---
Assessment and Plan Additional Plan this is a 66-year-old lady as I mentioned above is well known to me with coronary disease she has clinically been stable without any recent cardiac concerns or ischemic type symptoms. Her current symptoms I believe are related to esophageal reflux in that they occurred after discontinuing omeprazole, in the face of several days of ongoing symptomatology there is no evidence of acute coronary syndrome. She feels much better at this point I believe she can be discharged and does not require an ischemia workup at this time. Appropriate follow-up in my office of course is already scheduled is I have have been seeing Mrs. Saleh for a long time. Brent Naranjo MD [facility] History of Present Illness History of Present Illness Consult date/time: 02/05/21 09:54 Consult reason: chest pain Reason For Visit: chest pain Narrative: this is a 66-year-old woman who is well known to me with history of coronary artery disease who was admitted to the hospital last evening because of some chest pain that began on Wednesday of this past weekend. She states that she in addition to coronary disease has chronic problems with esophageal reflux. She has been doing extremely well with that and she decided last week to see if she could wean herself off of/discontinue omeprazole. She has been on omeprazole chronically for maintenance of her reflux disease. Regarding her coronary artery disease the patient has been doing well and in fact was just seen in my office recently for a follow-up visit and does not report any symptoms to suggest myocardial ischemia. She does she has a history of multivessel coronary disease for which she was referred for bypass grafting in the past. Unfortunately following bypass surgery she did have failure of her RCA graft and underwent PCI of her pilot station right coronary artery with stenting after that. Those procedures were done in the remote past and she has not had any recent symptoms to suggest myocardial ischemia. She is being maintained on a regimen of aspirin, nebivolol, simvastatin and fosinopril. She also takes furosemide daily for lower extremity edema. Her other principal comorbidity is morbid obesity. Her PCP I believe is Dr. Markus Laoz who has been managing her primary care needs for a long time. She states that on Wednesday of this past weekend within a couple of days after stopping omeprazole she started to have some burning retrosternal chest pain. She was concerned initially that this Represented dyspepsia but she did not remember that she had stopped her omeprazole. She says she has 1st remembered this last evening after being hospitalized. She was taking antacids including Frances-[place] with him relief of the symptoms but they would simply recur. She had the symptoms on an ongoing basis however some from Wednesday afternoon until last night. In the face of more than 48 hours of chest pain her electrocardiogram does not show any acute ischemic or injury changes and her troponin levels are negative x3 sets. She is not having any exertional symptoms such as chest pain pressure heaviness she denies any orthopnea PND accumulating edema or syncope. Once again this morning she feels well she has had resolution of the symptoms and does not offer any other other complaints. Review of Systems Constitutional: Constitutional: Reports no additional constitutional complaints Eyes: Eyes: Reports no additional eye complaints ENT: Reports system reviewed and no additional complaints, except as documented Cardiovascular: Cardiovascular: Reports as per HPI Respiratory: Respiratory: Reports no additional respiratory complaints Gastrointestinal: Gastrointestinal: Reports as per HPI Musculoskeletal: Musculoskeletal: Reports no additional musculoskeletal complaints Neurologic: Reports system reviewed and no additional complaints, except as documented Endocrine: Endocrine: Reports no additional endocrine
[2021-02-05] MEDS: GABAPENTIN 300 MG CAPSULE 600 MG PO (09:56)
[2021-02-05] MEDS: FUROSEMIDE 80 MG TABLET PO (09:57)
[2021-02-05] MEDS: lisinopriL 20 MG TABLET 40 MG PO (09:58)
[2021-02-05] MEDS: FAMOTIDINE 20 MG/2 ML VIAL IV PUSH (10:00)
[2021-02-05 10:06] LABS: Glucose Point of Care 168 mg/dl (65-105)
--- NOTE | 2021-02-05 10:42 | PM.DS ---
DS: Admitting Diagnosis Admitting Diagnosis Admitting Diagnosis: chest pain DS: Discharge Diagnosis Discharge Diagnosis (1) Chest pain: Code(s): R07.9 - Chest pain, unspecified Status: Acute Assessment and Plan: The patient stated that she has been getting more indigestion since she stopped taking her omeprazole the last week or 2. The patient stated that just now she noticed that when she eats a Ricardo cracker and goes down her esophagus she feels pain. The patient stated that she uses Frances-[place] 2 both at home. Her cardiac enzymes have been negative x3. Cardiology has been consulted. The patient has a heart history of having a total of 3 stents although to had become occluded she had 2 vessel CABG. the patient was having some reducible epigastric discomfort with palpation. I suggested that we do a gallbladder ultrasound the patient stage wanted to hold off on that as well. I also suggested a GI consult for possible EGD and the patient wanted to hold off on that as well. (2) HTN (hypertension): Code(s): I10 - Essential (primary) hypertension Status: Chronic Assessment and Plan: resume patient's Bystolic, lisinopril, and Procardia (3) Diabetes: Code(s): E11.9 - Type 2 diabetes mellitus without complications Status: Chronic Assessment and Plan: Accu-Cheks AC and HS. Continue with glargine at HS. Check A1c. Hold metformin in the event the patient would have to go for cardiac catheterization. Continue with Januvia. Continue with gabapentin (4) Chronic GERD: Code(s): K21.9 - Gastro-esophageal reflux disease without esophagitis Status: Acute Assessment and Plan: IV Pepcid for now. The patient stated that she stop taking her omeprazole about a week or 2 ago. (5) Hyperlipidemia: Code(s): E78.5 - Hyperlipidemia, unspecified Status: Chronic Assessment and Plan: Continue with Zocor (6) Heart disease: Code(s): I51.9 - Heart disease, unspecified Status: Chronic Assessment and Plan: patient had 2 stents that became occluded and then she had a 2 vessel CABG. She then had another stent later. The patient is on aspirin. DS: Summary Hospital Course Reason for hospitalization: This is a 66-year-old female patient was past medical history of having coronary artery disease with a total of 3 stents in 2 bypass surgery, diabetes type 2, hypertension, and acid reflux. The patient stated that her acid reflux has not been very well controlled with her omeprazole and she usually winds up taking Frances-[place] chewables as well. The patient stated approximately week or 2 ago she stopped taking her omeprazole on she noticed that she started having more heartburn. The patient developed some sharp chest pain across her anterior chest since last night. Radiated to her left arm. She said she had some nausea and intermittent chest pain. She thought it was indigestion but then it also feels like it was all heart attack as well. Her symptoms did improve somewhat with the nitroglycerin. The patient tells me that when she starts eating Ricardo crackers she noticed that she had some pain in herself gets when she was eating. The patient was given an aspirin, morphine and GI cocktail in the emergency she could not tell which thing relieved her chest pain because she said she was given them all at the same time. 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 Troponins have been negative. Chest x-ray was read as no acute cardiopulmonary disease. Creatinine is 1.3 which is typically 1.2. Glucose is 179 And 138. EKG was sinus rhythm left bundle-branch block baseline artifact. Patient is being admitted to observation status on the date of service of 02/04/2021. Chief Complaint: chest pain Hospital Course: Patient presented with a complaint of chest pain, 3 sets of cardiac enzymes are negative and there are no acute changes on EKG
== END 2021-02-05 11:56 | disposition home or self-care (01) ==
LOC: ANHED 16:33 → ANHIMU 17:14
PROVIDERS: Nurse Practitioner; Admitting Provider Family Medicine; Emergency Provider Emergency Medicine; PCP Family Medicine Adolescent Medicine; Visit Provider Family Medicine
DX: R07.9 Chest pain, unspecified (principal); I25.10 Atherosclerotic heart disease of native coronary artery without angina pectoris; E11.9 Type 2 diabetes mellitus without complications; I11.9 Hypertensive heart disease without heart failure; I25.2 Old myocardial infarction; K21.9 Gastro-esophageal reflux disease without esophagitis; E78.5 Hyperlipidemia, unspecified; E66.01 Morbid (severe) obesity due to excess calories; Z68.42 Body mass index [BMI] 45.0-49.9, adult; Z95.1 Presence of aortocoronary bypass graft; Z87.891 Personal history of nicotine dependence; Z95.5 Presence of coronary angioplasty implant and graft; Z79.84 Long term (current) use of oral hypoglycemic drugs
CPT/HCPCS: 36415; 71046; 80048; 80053; 82948; 83036; 83605; 83615; 83690; 83735; 84100; 84443; 84484; 85025; 85610; 85730; 93005; 96374; 96375; 96376; 99285; A9270; G0378; J2270

== ENCOUNTER 2022-02-12 05:17 | Emergency (ER) | payer OTHER, SELFPAY ==
--- NOTE | ~2022-02-12 | CT_ITS ---
EXAMINATION: CT abdomen pelvis wo con DATE: 02/12/2022 05:52 INDICATION: One week of right flank pain TECHNIQUE: Computed tomography (CT) of the abdomen and pelvis was performed without intravenous contr ast. Automated exposure control and iterative reconstruction technique were employed. The dose-length product was 1485.25 mGy-cm. COMPARISON: None FINDINGS: Mild dependent atelectasis in the bilateral lower lobes. Heart size is normal. Atherosclerotic brannon ry artery calcifications and change of median sternotomy and likely coronary artery bypass grafting. No pericardial or pleural effusion. Small calcified gallstone in the dependent aspect of the normal n ondilated gallbladder. Liver, spleen, pancreas, bilateral adrenal glands and left kidney are normal. Right kidney appears normal but is horizontally oriented. No urolithiasis or hydronephrosis. Small fa t-containing umbilical hernia. Bladder is normal. The uterus is not identified and has likely been whitmore rgically resected. The appendix is not visualized. No pericecal inflammatory change to suggest acute appendicitis. Also otherwise unremarkable with no wall thickening or obstruction. No free intraperito galdino gas or fluid. No pathologically enlarged abdominal or pelvic lymphadenopathy. Left total hip art hroplasty. Moderate thoracic and moderate to severe lumbar spondylosis including 5 mm anterolisthesis L4 on L5. There are bridging osteophytes at multiple levels in the spine, consistent with diffuse id iopathic skeletal hyperostosis (DISH). IMPRESSION: 1. No acute intra-abdominal/pelvic process. 2. Small fat-containing umbilical hernia. Reviewed, dictated and finalized at location A.
[2022-02-12 05:21] VITALS: BP 145/45; PULSE 65; RESP 18; TEMP 36.6; O2SAT 99
[2022-02-12] MEDS: ONDANSETRON INJ 4 MG/2 ML VIAL IV PUSH (05:36)
--- NOTE | 2022-02-12 05:36 | PC.NURSE ---
Pt to CT scan via stretcher at this time.
[2022-02-12 05:42] LABS: Basophils Absolute Auto 0.1 K/mm3 (0.0-0.1); Basophils Percent Auto 0.6 % (0.2-1.2); Eosinophils Absolute Auto 0.7 K/mm3 (0-0.3); Eosinophils Percent Auto 6.1 % (0-4.4); Hematocrit 38.7 % (37.0-47.0); Immature Granulocyte Absolute 0.03 K/mm3 (0.00-0.031); Immature Granulocyte Percent A 0.3 % (0-0.5); Lymphocytes Absolute Auto 3.78 K/mm3 (0.9-3.2); Lymphocytes Percent Auto 31.6 % (18.3-44.2); Mean Corpuscular Hemoglobin 28.8 pg (26-34); Mean Corpuscular Volume 92.8 fl (80-100); Mean Platelet Volume 9.9 fl (7.4-10.4); Monocytes Absolute Auto 1.2 K/mm3 (0.1-0.6); Monocytes Percent Auto 10.1 % (2.6-8.5); Neutrophils Absolute Auto 6.1 K/mm3 (1.3-6.7); Neutrophils Percent Auto 51.3 % (45.5-73.1); Platelet Count Result 283 k/mm3 (150-375); Red Blood Count 4.17 M/mm3 (4.2-5.4); Red Cell Distribution Width 14.6 % (11.5-14.5)
[2022-02-12 05:55] LABS: Alanine Aminotransferase 21 U/L (6-35); Albumin Level 4.1 g/dL (3.5-5.1); Alkaline Phosphatase 81 U/L (38-126); Anion Gap 14 mmol/L (8-16); Aspartate Amino Transferase 29 U/L (14-36); Bilirubin,Total 0.4 mg/dL (0.2-1.3); Blood Urea Nitrogen 21 mg/dL (7-17); Calcium 9.5 mg/dL (8.4-10.2); Carbon Dioxide 24 mmol/L (22-30); Chloride 104 mmol/L (98-107); Estimated CRCL calculation 41 ml/min; Estimated Glomerular Filt Rate 41; Glucose 142 mg/dL (65-110); Lipase 277 U/L (23-300); Potassium 4.3 mmol/L (3.4-5.0); Sodium 142 mmol/L (137-145)
[2022-02-12] MEDS: MORPHINE SULFATE (*CRX) 4 MG/ML INJ IV PUSH (06:02)
--- NOTE | 2022-02-12 06:19 | ED.BACK ---
HPI - Back Pain/Injury General Chief Complaint: Abdominal Pain Stated Complaint: rt flank pain Time Seen by Provider: 02/12/22 05:28 History of Present Illness HPI Narrative: 59-year-old female presenting with right flank pain on and off for the last week, it is sharp and seems to take her breath away when it comes on, associated with nausea and vomiting, no urinary symptoms or hematuria, she has never had kidney stones in the past, no increased frequency or pain with urination. No fevers or chills. Since last week the pain seems to have slurred moving down her right side. Related Data Home Medications Medication Instructions Recorded Confirmed aspirin 81 mg tablet,delayed 81 mg PO DAILY 10/03/19 02/04/21 release (Adult Low Dose Aspirin) epinephrine 0.3 mg/0.3 mL 0.3 mg IM ONCE PRN Anaphylaxis 10/03/19 02/04/21 injection, auto-injector furosemide 80 mg tablet 80 mg PO QAM 10/03/19 02/04/21 metformin 1,000 mg tablet 1,000 mg PO DAILY 10/03/19 02/04/21 nifedipine 90 mg tablet,extended 90 mg PO DAILY 10/03/19 02/04/21 release nitroglycerin 0.4 mg sublingual 0.4 mg sublingual Q5M PRN Chest 10/03/19 02/04/21 tablet Pain simvastatin 20 mg tablet 20 mg PO DAILY 10/03/19 02/04/21 sitagliptin 100 mg tablet (Januvia) 100 mg PO DAILY 10/03/19 02/04/21 Allergies Allergy/AdvReac Type Severity Reaction Status Date / Time iodine Allergy Severe Anaphylaxis Verified 02/12/22 05:26 SHELLFISH Allergy Severe Anaphylaxis Uncoded 02/12/22 05:26 Review of Systems Review of Systems: CONST: No fever. HEENT: No sore throat C/V: No chest pain RESP: No cough GI: Nausea and vomiting : No dysuria. M/S: No joint pain. SKIN: No rash. NEURO: [No headache or focal numbness or weakness] PSYCH: [No depression] [facility] Past Medical History Medical History Arthritis Bronchitis CAD (coronary artery disease) Chronic GERD Diabetes A1C=6.7 on 12/17/2018 Heart attack Heart disease History of angina HTN (hypertension) Hyperlipidemia Left wrist fracture Peripheral neuropathy Type II diabetes mellitus UTI (urinary tract infection) Surgical History Surgical History History of cardiac catheterization History of hysterectomy Hx of appendectomy Hx of breast reduction, elective Hx of CABG x2, 2002 Stented coronary artery x2 Family History Family History Father Heart disease Hypertension Acute myocardial infarction Grandparent Diabetes mellitus Sibling Diabetes mellitus Heart disease Cancer Sibling Cancer Social History Social History Social History: The patient stated that she was [employer] and just works [employer] now. 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 She has 1 child and 1 stepchild. The patient occasionally has a cocktail. The patient used to smoke but no longer does. No marijuana or illicit drugs. Patient desires to be a full code. Smoking packs per day: 2 Smoking cigarettes per day: 40.0 Years smoked: 30 Smoking pack-years: 60.00 Smoking status: Former smoker Tobacco type: cigarettes Second hand tobacco smoke exposure: No Smoking end date: 07/19/02 Alcohol intake: current Drinks per week: 2 Alcohol use details: Occasional Substance use: never Additional living arrangements comments: Additional occupation/education comments: [employer] Gender identity (if verbalized by the patient): Female Spiritual care concerns: No Exam Narrative: EXAMINATION OF ORGAN SYSTEMS/BODY AREAS: Constitutional: Vital signs per nursing GENERAL: Appears uncomfortable in bed HEAD: Normal with no signs of head trauma. EYES: EOMI, conjunctiva normal ENT: Hearing grossly intact
[2022-02-12 06:25] LABS: Appearance Urine Clear (Clear); Bilirubin Urine Negative (Negative); Blood Urine Negative (Negative); Color Urine Yellow (Yellow); Glucose Urine UA Negative (Negative); Ketones Urine Negative (Negative); Leukocyte Esterase Ur 1+ LEU/UL (Negative); Nitrate Urine Positive (Negative); Protein Urine Negative (Negative); Urobilinogen Urine 0.2 mg/dL (<2.0); pH Urine 5.5 (5.0-9.0)
[2022-02-12 06:33] LABS: Bacteria Urine Trace /hpf; Mucus Urine Rare /lpf; RBC Urine 0-2 /hpf (0-2); Squamous Epithelial Cell Urine Rare /hpf (Few); WBC Urine 31-50 /hpf
[2022-02-12 06:37] LABS: Add Urine Microscopic? YES
[2022-02-12 06:58] VITALS: BP 145/65; PULSE 58; RESP 17; O2SAT 96
--- NOTE | 2022-02-12 07:15 | PC.NURSE ---
ERP at bedside to discuss results and treatment plan with pt.
[2022-02-12] MEDS: cefTRIAXone 2 GM in SODIUM CHLORIDE 0.9% IV 100 ML 200 ML IVPB (07:35)
[2022-02-12] MEDS: KETOROLAC 15 MG/ML VIAL (*BKC) IV PUSH (07:44)
--- NOTE | 2022-02-12 07:46 | PC.NURSE ---
Pt ready for discharge. Rocephin still infusing at this time. Will discharge after completion.
[2022-02-12 08:09] VITALS: PULSE 54; RESP 15; O2SAT 95
[2022-02-12 08:14] VITALS: BP 142/49
== END 2022-02-12 08:22 | disposition home or self-care (01) ==
PROVIDERS: Emergency Provider Emergency Medicine; PCP Family Medicine Adolescent Medicine
DX: N10 Acute pyelonephritis (principal); I25.10 Atherosclerotic heart disease of native coronary artery without angina pectoris; I25.2 Old myocardial infarction; I10 Essential (primary) hypertension; E11.42 Type 2 diabetes mellitus with diabetic polyneuropathy; E78.5 Hyperlipidemia, unspecified; K21.9 Gastro-esophageal reflux disease without esophagitis; M19.90 Unspecified osteoarthritis, unspecified site; Z87.440 Personal history of urinary (tract) infections; Z90.710 Acquired absence of both cervix and uterus; Z95.1 Presence of aortocoronary bypass graft; Z95.5 Presence of coronary angioplasty implant and graft; Z87.891 Personal history of nicotine dependence; Z79.84 Long term (current) use of oral hypoglycemic drugs; Z79.82 Long term (current) use of aspirin
CPT/HCPCS: 36415; 74176; 80053; 81001; 83690; 85025; 87077; 87086; 87186; 96365; 96375; 99284; J0696; J1885; J2270; J2405

== ENCOUNTER 2022-03-13 09:14 | Outpatient (CLI) | payer OTHER, SELFPAY ==
--- NOTE | ~2022-03-13 | MM_ITS ---
EXAMINATION: MM screening jalil BI w rubi HISTORY: Screening TECHNIQUE: Craniocaudal and mediolateral oblique 3-D tomosynthesis images were obtained and synthetic 2-D images were generated. CAD analysis was submitted and interpreted. COMPARISON: 07/15/2009 BREAST PARENCHYMAL COMPOSITION: Breast composition is almost entirely fatty FINDINGS: There is stable architectural distortion lower central aspect of the left breast, likely re lated to previous breast reduction surgery. There is no evidence of suspicious mass, calcification, o r architectural distortion to suggest malignancy in either breast. There has been no suspicious inter andrea change. IMPRESSION: 1. No mammographic evidence of malignancy. 2. Recommend routine screening mammography in one year. BI-RADS Category 2: Benign finding(s). Reviewed, dictated and finalized at location A.
== END 2022-03-13 09:15 | disposition home or self-care (01) ==
LOC: ANHIMG 09:15
PROVIDERS: PCP Family Medicine Adolescent Medicine; Visit Provider Family Medicine Adolescent Medicine
DX: Z12.31 Encounter for screening mammogram for malignant neoplasm of breast (principal)
CPT/HCPCS: 77063; 77067

== ENCOUNTER 2022-07-02 11:17 | Emergency (ER) | payer OTHER, SELFPAY ==
[2022-07-02 11:38] VITALS: BP 148/78; PULSE 74; RESP 16; TEMP 36.1; O2SAT 98
--- NOTE | 2022-07-02 12:01 | ED.LOWEXIN ---
HPI - Extremity Injury (Lower) General Chief Complaint: Extremity Injury, Lower Stated Complaint: Left Foot Pain Time Seen by Provider: 07/02/22 12:01 Source: patient Mode of arrival: ambulatory Limitations: no limitations History of Present Illness HPI Narrative: 59-year-old diabetic female presenting for complaint of injury to left 4th toe yesterday. She states she felt mild pain while putting on a shoe. Later last night she noticed that toenail was loose. Denies significant pain. Reports minimal bleeding to the side of the nail. She applied a bandaid last night. Reports concern for infection due to DM. States she is unable to trim the left toenails due to the history of left hip surgery limiting ROM. Related Data Home Medications Medication Instructions Recorded Confirmed aspirin 81 mg tablet,delayed 81 mg PO DAILY 10/03/19 07/02/22 release (Adult Low Dose Aspirin) epinephrine 0.3 mg/0.3 mL 0.3 mg IM ONCE 10/03/19 07/02/22 injection, auto-injector nifedipine 90 mg tablet,extended 90 mg PO DAILY 10/03/19 07/02/22 release nitroglycerin 0.4 mg sublingual 0.4 mg sublingual Q5M 10/03/19 07/02/22 tablet sitagliptin phosphate 100 mg 100 mg PO DAILY 10/03/19 07/02/22 tablet (Januvia) [id number] 18 mg-FA 400 tablet PO 03/05/22 03/12/22 mcg-calcium 500 mg-vit K 50 mcg tablet (Women's Multivitamin) celecoxib 200 mg capsule 200 mg DAILY 07/02/22 fosinopril 40 mg tablet 40 mg DAILY 07/02/22 furosemide 80 mg tablet 80 mg DAILY 07/02/22 gabapentin 600 mg tablet 800 mg DAILY 07/02/22 insulin glargine 100 unit/mL 10 unit subcut DIRECTED 07/02/22 07/02/22 subcutaneous solution (Lantus U-100 Insulin) metformin 1,000 mg tablet 1,000 mg DAILY 07/02/22 nebivolol 20 mg tablet 20 mg DAILY 07/02/22 pantoprazole 40 mg tablet,delayed 40 mg PO DAILY 07/02/22 release simvastatin 20 mg tablet 20 mg DAILY 07/02/22 Allergies Allergy/AdvReac Type Severity Reaction Status Date / Time iodine Allergy Severe Anaphylaxis Verified 07/02/22 11:48 SHELLFISH Allergy Severe Anaphylaxis Uncoded 07/02/22 11:48 Review of Systems Review of Systems: ROS per HPI All systems reviewed & are unremarkable except as noted in HPI and below PMFSH Past Medical History Medical History CAD (coronary artery disease) Chronic GERD Heart attack History of angina Left wrist fracture Peripheral neuropathy Type II diabetes mellitus Surgical History Surgical History History of carpal tunnel surgery of right wrist (06/2016) History of hysterectomy with bilateral oophorectomy (1985) History of total left hip arthroplasty (11/2019) Hx of appendectomy (1985) Hx of breast reduction, elective (2003) Hx of CABG (2002) x2, 2003 Stented coronary artery (2015) x2 Family History Family History Father Heart disease Hypertension Acute myocardial infarction Grandparent Diabetes mellitus Sibling Diabetes mellitus Heart disease Cancer Sibling Cancer Social History Social History Social History: The patient stated that she was [employer] and just works [employer] now. 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 She has 1 child and 1 stepchild. The patient occasionally has a cocktail. The patient used to smoke but no longer does. No marijuana or illicit drugs. Patient desires to be a full code. Smoking packs per day: 2 Smoking cigarettes per day: 40.0 Years smoked: 30 Smoking pack-years: 60.00 Smoking status: Former smoker Tobacco type: cigarettes Second hand tobacco smoke exposure: No Smoking end date: 07/19/02 Alcohol intake: current Drinks per week: 2 Alcohol use details: Occasiona
== END 2022-07-02 12:32 | disposition home or self-care (01) ==
PROVIDERS: Emergency Provider Nurse Practitioner Family; PCP Family Medicine Adolescent Medicine
DX: L60.8 Other nail disorders (principal); Z87.891 Personal history of nicotine dependence; I25.110 Atherosclerotic heart disease of native coronary artery with unstable angina pectoris; K21.9 Gastro-esophageal reflux disease without esophagitis; E11.42 Type 2 diabetes mellitus with diabetic polyneuropathy; I25.2 Old myocardial infarction; Z95.5 Presence of coronary angioplasty implant and graft
CPT/HCPCS: 99213; G0463

== ENCOUNTER 2023-02-19 08:33 | Outpatient (CLI) | payer OTHER, SELFPAY ==
--- NOTE | ~2023-02-19 | XR_ITS ---
Clinical Indication: Dyspnea PA and lateral views of the chest: Comparison: 02/04/2021 Findings: The lungs are clear, without evidence of focal consolidation or pleural effusion. Cardiome diastinal silhouette is stable. Bones and soft tissues are unremarkable. Impression: Clear lungs. Reviewed, dictated and finalized at location . Impression: Clear lungs.
[2023-02-19 08:57] LABS: Hemoglobin 11.8 g/dL (12.0-15.0); Mean Corpuscular HGB Conc 31.1 g/dl (32-36); Mean Corpuscular Hemoglobin 28.7 pg (26-34); Mean Corpuscular Volume 92.5 fl (80-100); Mean Platelet Volume 9.9 fl (7.4-10.4); Platelet Count Result 282 k/mm3 (150-375); Red Blood Count 4.11 M/mm3 (4.2-5.4); Red Cell Distribution Width 14.8 % (11.5-14.5); White Blood Count 11.8 K/mm3 (4.5-10.0)
[2023-02-19 09:06] LABS: Alanine Aminotransferase 31 U/L (6-35); Albumin Level 4.3 g/dL (3.5-5.1); Alkaline Phosphatase 87 U/L (38-126); Anion Gap 12 mmol/L (8-16); Aspartate Amino Transferase 32 U/L (14-36); Bilirubin,Total 0.2 mg/dL (0.2-1.3); Blood Urea Nitrogen 24 mg/dL (7-17); Calcium 9.4 mg/dL (8.4-10.2); Carbon Dioxide 22 mmol/L (22-30); Chloride 106 mmol/L (98-107); Cholesterol 138 mg/dL (0-200); Estimated Glomerular Filt Rate 32; Glucose 177 mg/dL (65-110); HDL Direct 45 mg/dL; Potassium 4.1 mmol/L (3.4-5.0); Sodium 140 mmol/L (137-145); Triglycerides 218 mg/dL (<150)
[2023-02-19 09:17] LABS: LDL Cholesterol Direct 54 mg/dL
[2023-02-19 10:03] LABS: Hemoglobin A1C 7.6 % (<5.7)
== END 2023-02-19 08:34 | disposition home or self-care (01) ==
LOC: ANHLAB 08:35
PROVIDERS: PCP Family Medicine Adolescent Medicine; Visit Provider Family Medicine Adolescent Medicine
DX: E11.22 Type 2 diabetes mellitus with diabetic chronic kidney disease (principal); E78.00 Pure hypercholesterolemia, unspecified; I12.9 Hypertensive chronic kidney disease with stage 1 through stage 4 chronic kidney disease, or unspecified chronic kidney disease; N18.32 Chronic kidney disease, stage 3b; R06.00 Dyspnea, unspecified
CPT/HCPCS: 36415; 71046; 80053; 80061; 83036; 85027

== ENCOUNTER 2023-05-06 01:36 | Day surgery (SDC) | payer OTHER, SELFPAY ==
[2023-04-28 12:03] VITALS: BMI 46.0
[2023-05-06 07:40] VITALS: BP 147/64; PULSE 66; RESP 22; TEMP 36.7; O2SAT 93; BMI 46.6
[2023-05-06 07:55] LABS: Glucose Point of Care 111 mg/dl (65-105)
[2023-05-06] MEDS: LACTATED RINGERS 1,000 ML 150 ML IV CONT (08:22)
--- NOTE | 2023-05-06 08:54 | PM.HPGS ---
History of Present Illness History of Present Illness Consent: Risks, benefits, and alternatives have been discussed and questions answered. Patient agrees to proceed with procedure. Chief complaint: occult blood in stool Narrative: Katia Saleh is a 68 year old female presents for colonoscopy. Patient's current weight appetite and bowel movements are normal. Patient denies abdominal pain. She has had bleeding. Family history noncontributory. Recent stool was positive fit test. Suggesting occult blood in stool. She denies any pain or bleeding. Review of Systems Review of Systems: review of systems noncontributory. [facility] Past Medical History Medical History CAD (coronary artery disease) Chronic GERD Heart attack History of angina Left wrist fracture Peripheral neuropathy Type II diabetes mellitus Surgical History Surgical History History of carpal tunnel surgery of right wrist (06/2016) History of hysterectomy with bilateral oophorectomy (1985) History of total left hip arthroplasty (11/2019) Hx of appendectomy (1985) Hx of breast reduction, elective (2003) Hx of CABG (2002) x2, 2003 Stented coronary artery (2015) x2 Family History Family History Father Heart disease Hypertension Acute myocardial infarction Grandparent Diabetes mellitus Sibling Diabetes mellitus Heart disease Cancer Sibling Cancer Social History Social History (Updated 02/16/23 @ 10:25 by Jluis Irene [facility]) Social History: 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 She has 1 child and 1 stepchild. The patient occasionally has a cocktail. The patient used to smoke but no longer does. No marijuana or illicit drugs. Patient desires to be a full code. Smoking packs per day: 2 Smoking cigarettes per day: 40.0 Years smoked: 30 Smoking pack-years: 60.00 Smoking status: Never smoker Tobacco type: cigarettes Second hand tobacco smoke exposure: No Smoking end date: 07/19/02 Alcohol intake: current Drinks per week: 2 Alcohol use details: Occasional Substance use: never Substance use type: does not use Lack of Transportation: No Lack of Food: Never True Current Housing: I Have Housing Concerned About Future Housing: No Difficulty Paying Gas/Electric Bills: No Difficulty Paying for Meds: No Currently Unemployed: No Education: High School Diploma/GED Difficulty w/ Childcare or Family Care: No Living arrangements: with family Additional living arrangements comments: Occupation/Education: occupation Additional occupation/education comments: [employer] Gender identity (if verbalized by the patient): Female Spiritual care concerns: No Meds Home Medications and Allergies Home Medications Medication Instructions Recorded Confirmed Type aspirin 81 mg tablet,delayed 81 mg PO DAILY 10/03/19 04/28/23 History release (Adult Low Dose Aspirin) nitroglycerin 0.4 mg sublingual 0.4 mg sublingual Q5M PRN Angina 10/03/19 04/28/23 History tablet sitagliptin phosphate 100 mg 100 mg PO DAILY 10/03/19 04/28/23 History tablet (Januvia) ondansetron 4 mg disintegrating 4 mg PO Q8H PRN nausea and 02/12/22 04/28/23 Rx tablet vomiting #10 tabs nmtelriu-gpc-btzp 18 mg-FA 400 1 tablet PO DAILY 03/05/22 04/28/23 History mcg-calcium 500 mg-vit K 50 mcg tablet (Women's Multivitamin) gabapentin 800 mg tablet 800 mg PO TID #270 tabs 09/17/22 04/28/23 Rx pen needle, diabetic 31 gauge x #100 ea 01/18/23 02/16/23 Rx 5/16 (BD Ultra-Fine Short Pen Needle) fosinopril 40 mg tablet 40 mg PO DAILY #90 tabs 01/31/23
[2023-05-06 09:30] VITALS: BP 104/81; PULSE 56; RESP 21; O2SAT 96
[2023-05-06 09:40] VITALS: BP 120/56; PULSE 55; RESP 18; O2SAT 96
[2023-05-06 09:50] VITALS: BP 122/70; PULSE 53; RESP 20; O2SAT 100
[2023-05-06 09:55] LABS: Glucose Point of Care 110 mg/dl (65-105)
== END 2023-05-06 10:00 | disposition home or self-care (01) ==
PROVIDERS: PCP Family Medicine Adolescent Medicine; Visit Provider Internal Medicine Gastroenterology
PROC: 0DJD8ZZ Inspection of Lower Intestinal Tract, Via Natural or Artificial Opening Endoscopic (ICD-10-PCS; CPT 45378; principal; 2023-05-06 09:00)
DX: D12.3 Benign neoplasm of transverse colon (principal); K64.8 Other hemorrhoids; R19.5 Other fecal abnormalities; I25.10 Atherosclerotic heart disease of native coronary artery without angina pectoris; I25.2 Old myocardial infarction; E11.42 Type 2 diabetes mellitus with diabetic polyneuropathy; K21.9 Gastro-esophageal reflux disease without esophagitis; Z95.1 Presence of aortocoronary bypass graft; Z95.5 Presence of coronary angioplasty implant and graft; Z87.891 Personal history of nicotine dependence; Z79.82 Long term (current) use of aspirin; Z79.84 Long term (current) use of oral hypoglycemic drugs; Z79.4 Long term (current) use of insulin
CPT/HCPCS: 45385; 82948; 88305; J2704; J7120

== ENCOUNTER 2023-07-31 10:55 | Emergency (ER) | payer OTHER, SELFPAY ==
[2023-07-31 11:22] VITALS: BP 152/52; PULSE 64; RESP 16; TEMP 37.2; O2SAT 99
--- NOTE | 2023-07-31 11:37 | ED.FEMALEGU ---
HPI - Female Genitourinary General Chief complaint: Urogenital-Female Stated complaint: urinary issue Source: patient and RN notes reviewed Mode of arrival: ambulatory Limitations: no limitations History of Present Illness HPI Narrative: 68 y/o female with hx DM, HTN, CKD, CAD presented for c/o Urgency, frequency, and pressure with urinating. Onset last night. Also reports up 3 times to urinate in the night, feels like she has a full bladder but voids small amounts at a time. Pt contacted pcp exchange, Cipro Rx sent. Pt was advised to get a UA at [facility] as well. Pt states she arrived but [facility] was closed for the weekend so she checked into clinic. denies hematuria, dysuria, nausea, vomiting, abdominal pain, flank pain, constipation, diarrhea, fevers or chills. Related Data Home Medications Medication Instructions Recorded Confirmed aspirin 81 mg tablet,delayed 81 mg PO DAILY 10/03/19 07/31/23 release (Adult Low Dose Aspirin) nitroglycerin 0.4 mg sublingual 0.4 mg sublingual Q5M PRN Angina 10/03/19 07/31/23 tablet sitagliptin phosphate 100 mg 100 mg PO DAILY 10/03/19 07/31/23 tablet (Januvia) mzyhwymn-qrd-wjwo 18 mg-FA 400 1 tablet PO DAILY 03/05/22 07/31/23 mcg-calcium 500 mg-vit K 50 mcg tablet (Women's Multivitamin) epinephrine 0.3 mg/0.3 mL 0.3 mg IM PRN PRN Anaphylaxis 04/28/23 07/31/23 injection, auto-injector metformin 1,000 mg tablet 1,000 mg PO BID 04/28/23 07/31/23 nifedipine 90 mg tablet,extended 90 mg PO HS 04/28/23 07/31/23 release simvastatin 20 mg tablet 20 mg PO HS 04/28/23 07/31/23 Allergies Allergy/AdvReac Type Severity Reaction Status Date / Time iodine Allergy Severe Anaphylaxis Verified 07/31/23 11:13 SHELLFISH Allergy Severe Anaphylaxis Uncoded 07/31/23 11:13 Review of Systems Review of Systems: CONSTITUTIONAL: Denies body aches, fever, chills, or sweats. CARDIOVASCULAR: Denies chest pain, palpitations, or edema. RESPIRATORY: Denies cough or dyspnea. GASTROINTESTINAL: Denies abdominal pain, nausea, vomiting, or diarrhea. GENITOURINARY: Reports frequency, urgency, denies hematuria, flank pain SKIN: Denies rash, itching, or wounds. MUSCULOSKELETAL: Denies back pain or myalgia. [facility] Past Medical History Medical History CAD (coronary artery disease) Chronic GERD Heart attack History of angina Left wrist fracture Peripheral neuropathy Type II diabetes mellitus Surgical History Surgical History History of carpal tunnel surgery of right wrist (06/2016) History of hysterectomy with bilateral oophorectomy (1985) History of total left hip arthroplasty (11/2019) Hx of appendectomy (1985) Hx of breast reduction, elective (2003) Hx of CABG (2002) x2, 2003 Stented coronary artery (2015) x2 Family History Family History Father Heart disease Hypertension Acute myocardial infarction Grandparent Diabetes mellitus Sibling Diabetes mellitus Heart disease Cancer Sibling Cancer Social History Social History Social History: The patient stated that she was [employer] and just works [employer] now. 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 She has 1 child and 1 stepchild. The patient occasionally has a cocktail. The patient used to smoke but no longer does. No marijuana or illicit drugs. Patient desires to be a full code. Smoking packs per day: 2 Smoking cigarettes per day: 40.0 Years smoked: 30 Smoking pack-years: 60.00 Smoking status: Never smoker Tobacco type: cigarettes Second hand tobacco smoke exposure: No Smoking end date: 07/19/02 Alcohol intake: current Drinks per week: 2 Alcohol use details: Occasional Substance use: never S
== END 2023-07-31 11:56 | disposition home or self-care (01) ==
PROVIDERS: Emergency Provider Nurse Practitioner Family; PCP Family Medicine Adolescent Medicine
DX: N39.0 Urinary tract infection, site not specified (principal); B96.20 Unspecified Escherichia coli [E. coli] as the cause of diseases classified elsewhere; Z87.891 Personal history of nicotine dependence; I13.10 Hypertensive heart and chronic kidney disease without heart failure, with stage 1 through stage 4 chronic kidney disease, or unspecified chronic kidney disease; E11.22 Type 2 diabetes mellitus with diabetic chronic kidney disease; N18.9 Chronic kidney disease, unspecified; Z79.84 Long term (current) use of oral hypoglycemic drugs; K21.9 Gastro-esophageal reflux disease without esophagitis; I25.110 Atherosclerotic heart disease of native coronary artery with unstable angina pectoris; E11.42 Type 2 diabetes mellitus with diabetic polyneuropathy; Z96.642 Presence of left artificial hip joint; Z95.5 Presence of coronary angioplasty implant and graft
CPT/HCPCS: 81003; 87077; 87086; 87186; 99213; G0463

== ENCOUNTER 2024-01-20 14:54 | Emergency (ER) | payer OTHER, SELFPAY ==
[2024-01-20 15:18] VITALS: BP 151/54; PULSE 65; RESP 16; TEMP 37.5; O2SAT 98
--- NOTE | 2024-01-20 15:41 | ED.DENTAL ---
HPI - Dental/Oral General Chief complaint: Dental/Oral Stated complaint: gum pain Time Seen by Provider: 01/20/24 15:41 Source: patient Mode of arrival: ambulatory Limitations: no limitations History of Present Illness HPI Narrative: 69-year-old female presents with complaint lower dental pain and swelling for the past 4 days. States she when out for [employer] [place] and got tortilla chip stuck under her dental bridge. Since then pain and swelling have worsened. Is concerned for infection. Has not called her dentist for appointment. All systems reviewed and negative except as noted above. Related Data Home Medications Medication Instructions Recorded Confirmed aspirin 81 mg tablet,delayed 81 mg PO DAILY 10/03/19 07/31/23 release (Adult Low Dose Aspirin) nitroglycerin 0.4 mg sublingual 0.4 mg sublingual Q5M PRN Angina 10/03/19 07/31/23 tablet fqbwhwiq-hii-nirc 18 mg-FA 400 1 tablet PO DAILY 03/05/22 07/31/23 mcg-calcium 500 mg-vit K 50 mcg tablet (Women's Multivitamin) epinephrine 0.3 mg/0.3 mL 0.3 mg IM PRN PRN Anaphylaxis 04/28/23 07/31/23 injection, auto-injector metformin 1,000 mg tablet 1,000 mg PO BID 04/28/23 07/31/23 nifedipine 90 mg tablet,extended 90 mg PO HS 04/28/23 07/31/23 release simvastatin 20 mg tablet 20 mg PO HS 04/28/23 07/31/23 Allergies Allergy/AdvReac Type Severity Reaction Status Date / Time iodine Allergy Severe Anaphylaxis Verified 01/20/24 15:51 SHELLFISH Allergy Severe Anaphylaxis Uncoded 01/20/24 15:51 Review of Systems Review of Systems: CONSTITUTIONAL: Denies fever, chills, or sweats. EYES: Denies visual changes, redness, or discharge. ENT: Denies rhinorrhea, congestion, sore throat, or otalgia. Reports lower dental pain and swelling. CARDIOVASCULAR: Denies chest pain, palpitations, or edema. RESPIRATORY: Denies cough or dyspnea. GASTROINTESTINAL: Denies abdominal pain, nausea, vomiting, or diarrhea. GENITOURINARY: Denies dysuria or hematuria. SKIN: Denies rash or itching. MUSCULOSKELETAL: Denies back pain, joint pain, or myalgia. NEUROLOGIC: Denies headache, numbness, or weakness. PSYCHIATRIC: Denies anxiety or depression. All other systems reviewed are negative, except as documented in HPI. [facility] Past Medical History Medical History (Updated 01/20/24 @ 15:54 by Steph Delacruz NP) CAD (coronary artery disease) Chronic GERD Heart attack History of angina Left wrist fracture Peripheral neuropathy Type II diabetes mellitus Surgical History Surgical History History of carpal tunnel surgery of right wrist (06/2016) History of hysterectomy with bilateral oophorectomy (1985) History of total left hip arthroplasty (11/2019) Hx of appendectomy (1985) Hx of breast reduction, elective (2003) Hx of CABG (2002) x2, 2002 Stented coronary artery (2015) x2 Family History Family History Father Heart disease Hypertension Acute myocardial infarction Grandparent Diabetes mellitus Sibling Diabetes mellitus Heart disease Cancer Sibling Cancer Social History Social History Social History: The patient stated that she was [employer] and just works [employer] now. 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 She has 1 child and 1 stepchild. The patient occasionally has a cocktail. The patient used to smoke but no longer does. No marijuana or illicit drugs. Patient desires to be a full code. Smoking packs per day: 2 Smoking cigarettes per day: 40.0 Years smoked: 30 Smoking pack-years: 60.00 Smoking status: Never smoker Tobacco type: cigarettes Second hand tobacco smoke exposure: No Smoking end date: 07/19/02 Alcohol intake: current Drinks per week: 2 Alcohol use details: Occasional Sub
== END 2024-01-20 16:08 | disposition home or self-care (01) ==
PROVIDERS: Emergency Provider Nurse Practitioner Family; PCP Family Medicine Adolescent Medicine
DX: K04.7 Periapical abscess without sinus (principal); Z87.891 Personal history of nicotine dependence; I25.110 Atherosclerotic heart disease of native coronary artery with unstable angina pectoris; K21.9 Gastro-esophageal reflux disease without esophagitis; E11.42 Type 2 diabetes mellitus with diabetic polyneuropathy; I25.2 Old myocardial infarction; Z95.5 Presence of coronary angioplasty implant and graft; Z96.642 Presence of left artificial hip joint; Z79.82 Long term (current) use of aspirin
CPT/HCPCS: 99213; G0463

== ENCOUNTER 2024-02-10 07:42 | Outpatient (CLI) | payer OTHER, SELFPAY ==
[2024-02-10 09:14] LABS: Alanine Aminotransferase 18 U/L (6-35); Albumin Level 4.4 g/dL (3.5-5.1); Alkaline Phosphatase 78 U/L (38-126); Anion Gap 16 mmol/L (4-12); Aspartate Amino Transferase 24 U/L (14-36); Bilirubin,Total 0.3 mg/dL (0.2-1.3); Blood Urea Nitrogen 26 mg/dL (7-17); Carbon Dioxide 23 mmol/L (22-30); Chloride 103 mmol/L (98-107); Cholesterol 139 mg/dL (0-200); Estimated Glomerular Filt Rate 32; Glucose 115 mg/dL (65-110); HDL Direct 42 mg/dL; Potassium 4.3 mmol/L (3.4-5.0); Sodium 142 mmol/L (137-145); Triglycerides 214 mg/dL (<150)
[2024-02-10 09:25] LABS: LDL Cholesterol Direct 55 mg/dL
[2024-02-10 17:02] LABS: Microalbumin Urine Random 12.9 mg/L (0-16.7)
[2024-02-10 17:05] LABS: Creatinine Urine 40.5 mg/dL; MALB Creatinine Ratio 31.9 mg/g (0-30)
== END 2024-02-10 07:43 | disposition home or self-care (01) ==
LOC: ANHLAB 07:44
PROVIDERS: PCP Family Medicine Adolescent Medicine; Visit Provider Nurse Practitioner Family
DX: E11.22 Type 2 diabetes mellitus with diabetic chronic kidney disease (principal); E78.00 Pure hypercholesterolemia, unspecified; I12.9 Hypertensive chronic kidney disease with stage 1 through stage 4 chronic kidney disease, or unspecified chronic kidney disease; I70.0 Atherosclerosis of aorta; Z79.4 Long term (current) use of insulin; N18.9 Chronic kidney disease, unspecified
CPT/HCPCS: 36415; 80053; 80061; 82043; 83036

== ENCOUNTER 2024-04-11 13:49 | Outpatient (CLI) | payer OTHER, SELFPAY ==
--- NOTE | ~2024-04-11 | MM_ITS ---
EXAMINATION: MM screening [facility] BI w rubi HISTORY: Screening TECHNIQUE: Craniocaudal and mediolateral oblique 3-D tomosynthesis images were obtained and synthetic 2-D images were generated. CAD analysis was submitted and interpreted. COMPARISON: Comparison to multiple prior studies sequentially, with oldest reviewed study dated 06/19. BREAST PARENCHYMAL COMPOSITION: Not Dense. The breasts are almost entirely fatty. FINDINGS: There is no evidence of suspicious mass, calcification, or architectural distortion to sugg est malignancy in either breast. There has been no suspicious interval change. IMPRESSION: 1. No mammographic evidence of malignancy. 2. Recommend routine screening mammography in one year. BI-RADS Category 1: Negative Reviewed, dictated and finalized at location B.
== END 2024-04-11 13:50 | disposition home or self-care (01) ==
PROVIDERS: PCP Family Medicine Adolescent Medicine; Visit Provider Nurse Practitioner Family
DX: Z12.31 Encounter for screening mammogram for malignant neoplasm of breast (principal)
CPT/HCPCS: 77063; 77067

== ENCOUNTER 2024-07-14 14:40 | Emergency (ER) | payer OTHER, SELFPAY ==
[2024-07-14 14:53] VITALS: BP 137/65; PULSE 88; RESP 16; TEMP 36.7; O2SAT 99
--- NOTE | 2024-07-14 15:17 | ED_ITS ---
HPI - Extremity Problem General Chief complaint: Extremity Problem,Nontraumatic Stated complaint: Left Foot Pain Time Seen by Provider: 07/14/24 15:15 Source: patient Mode of arrival: ambulatory Limitations: no limitations History of Present Illness HPI Narrative: Katia is a 69-year-old female patient presenting to the clinic today with complaints of left foot pain x3 days. She reports that she is having some pain to the bottom of her foot and to the lateral foot. Feels as though that is a tearing sensation when she is stepping down. States the pain is so bad she wants to vomit. She denies any known injury to the foot. Related Data Home Medications ?Medication ?Instructions ?Recorded ?Confirmed ?Last Taken ?Type aspirin 81 mg tablet,delayed 81 mg PO DAILY 10/03/19 02/18/24 Unknown History release (Adult Low Dose Aspirin) nitroglycerin 0.4 mg sublingual 0.4 mg sublingual Q5M PRN Angina 10/03/19 02/18/24 Unknown History tablet oxxkkofl-aoh-ilix 18 mg-FA 400 1 tablet PO DAILY 03/05/22 02/18/24 Unknown History mcg-calcium 500 mg-vit K 50 mcg tablet (Women's Multivitamin) epinephrine 0.3 mg/0.3 mL 0.3 mg IM PRN PRN Anaphylaxis 04/28/23 02/18/24 Unknown History injection, auto-injector Allergies Allergy/AdvReac Type Severity Reaction Status Date / Time iodine Allergy Severe Anaphylaxis Verified 07/14/24 14:53 SHELLFISH Allergy Severe Anaphylaxis Uncoded 02/18/24 10:12 Review of Systems Review of Systems: Pertinent positives per HPI. Patient denies any fever, chills, rash, headache, visual changes, dizziness, cough, runny nose, sore throat, shortness of breath, chest pain, palpitations, nausea, vomiting, diarrhea, constipation, abdominal pain, or any urinary issues. [facility] Past Medical History Medical History Chronic GERD Heart attack Left wrist fracture Type II diabetes mellitus CAD (coronary artery disease) History of angina Peripheral neuropathy Surgical History Surgical History History of total left hip arthroplasty (11/2019) History of carpal tunnel surgery of right wrist (06/2016) History of hysterectomy with bilateral oophorectomy (1985) Hx of breast reduction, elective (2003) Hx of appendectomy (1985) Hx of CABG (2002) x2, 2002 Stented coronary artery (2015) x2 Family History Family History Father Heart disease Hypertension Acute myocardial infarction Grandparent Diabetes mellitus Sibling Diabetes mellitus Heart disease Cancer Sibling Cancer Social History Social History Social History: The patient stated that she was [employer] and just works [employer] now. 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 She has 1 child and 1 stepchild. The patient occasionally has a cocktail. The patient used to sm ashley but no longer does. No marijuana or illicit drugs. Patient desires to be a full code. Smoking packs per day: 2 Smoking cigarettes per day: 40.0 Years smoked: 30 Smoking pack-years: 60.00 Smoking status: Former smoker Tobacco type: cigarettes Second hand tobacco smoke exposure: No Smoking end date: 07/19/02 Alcohol intake: current Drinks per week: 2 Alcohol use details: Occasional Substance use: never Substance use type: does not use Lack of Transportation: No Lack of Food: Never True Current Housing: I Have Housing Concerned About Future Housing: No Difficulty Paying Gas/Electric Bills: No Difficulty Paying for Meds: No Currently Unemployed: No Education: High School Diploma/GED Difficulty w/ Childcare or Family Care: No Living arrangements: with family Additional living arrangements comments: Occupation/Education: occupation Additional occupation/education comments: [employer] Gender identity (if verbalized by the patient): Female Spiritual care concerns: No Comments At the time of my signature, I reviewed and agree with the nursing past medical, surgical, social, and family history. There is no relevant family history pertinent to the patient complaint. Exam Narrative: General: Well-developed, well nourished, in no apparent distress Head: Normocephalic, atraumatic. Cardio: Regular rate and rhythm, s1 and s2 normal, no murmur appreciated. Resp: Clear to auscultation bilaterally, no rhonchi, rales, wheezing or rubs. Musculoskeletal: No deformity, tender to palpation over the plantar fascia the left foot, pain with dorsal flexion, tenderness to palpation over the lateral foot, grossly normal range of motion, muscle strength strong and equal, peripheral pulse strong, no edema, no cyanosis, sitting in a wheelchair Course Course Emergency Course: Portions of this record may have been created with voice recognition software. Level of Care: Express Care Visit Vital Signs Vital signs: Vital Signs Temperature 36.7 C 07/14/24 14:53 Pulse Rate 88 07/14/24 14:53 Respiratory Rate 16 07/14/24 14:53 Blood Pressure 137/65 07/14/24 14:53 Pulse Oximetry 99 07/14/24 14:53 Oxygen Delivery Room Air 07/14/24 14:53 Temperature 36.7 C 07/14/24 14:53 Pulse Rate 88 07/14/24 14:53 Respiratory Rate 16 07/14/24 14:53 Blood Pressure 137/65 07/14/24 14:53 Pulse Oximetry 99 07/14/24 14:53 Oxygen Delivery Room Air 07/14/24 14:53 Vital signs reviewed MDM - Extremity (Nontraumatic) MDM Narrative Medical decision making narrative: At the time of visit patient is resting comfortably on the exam table. Patient appears to be nontoxic. Plan: I suspect patient has plantar fasciitis left foot. Prescription for short course of naproxen was sent to the pharmacy. Supportive measures were discussed with the patient and they voiced understanding discharge instructions and agrees to treatment plan. Return precautions reviewed Differential Diagnosis Differential diagnosis: Likely gout, cellulitis and other (Osteoarthritis, plantar fasciitis, heel spurs) Discharge Plan Discharge Clinical Impression: Plantar fasciitis of left foot Patient Disposition: Home, Self-Care Condition: Stable Instructions: Antibiotic Form, Plantar Fasciitis (ED), Plantar Fasciitis Exercises (ED) Additional Instructions: Rest, ice, elevate- use ice water bottle and roll on the bottom of your foot- this will ice and help stretch out the plantar facia Complete plantar fascia exercises- twice daily- more if needed Take medrol dose pack and hydrocodone as directed Bear weight as tolerated Follow up with your PCP next week if symptoms persist. Patient Language: Czech Prescriptions: New methylprednisolone [Medrol (Chace)] 4 mg tablets,dose pack See Rx Instructions PO .COMPLEX Qty: 21 0RF Rx Instructions: orally per package directions hydrocodone-acetaminophen 5-325 mg tablet 1 tablet PO Q6H PRN (Reason: pain) 3 Days Qty: 12 0RF No Action aspirin [Adult Low Dose Aspirin] 81 mg tablet,delayed release (DR/EC) 81 mg PO DAILY nitroglycerin 0.4 mg tablet, sublingual 0.4 mg SUBLINGUAL Q5M PRN (Reason: Angina) Rx Instructions: do not exceed 3 doses per episode Women's Multivitamin 18 mg-400 mcg- 500 mg-50 mcg tablet 1 tablet PO DAILY epinephrine 0.3 mg/0.3 mL Auto-Injector 0.3 mg IM PRN PRN (Reason: Anaphylaxis) Rx Instructions: do not exceed 3 doses per episode furosemide 80 mg tablet 80 mg PO DAILY Qty: 90 3RF Rx Instructions: TAKE ONE TABLET BY MOUTH ONCE DAILY nebivolol 20 mg tablet 20 mg PO DAILY Qty: 90 3RF fosinopril 40 mg tablet 40 mg PO DAILY Qty: 90 3RF Rx Instructions: TAKE ONE TABLET BY MOUTH ONCE DAILY simvastatin 20 mg tablet See Rx Instructions .ROUTE .COMPLEX Qty: 90 3RF Dose Instruction: TAKE 1 TABLET BY MOUTH EVERY DAY Rx Instructions: TAKE 1 TABLET BY MOUTH EVERY DAY nifedipine 90 mg tablet extended release 90 mg PO HS Qty: 90 3RF Rx Instructions: TAKE 1 TABLET BY MOUTH EVERY DAY gabapentin 800 mg tablet See Rx Instructions .ROUTE .COMPLEX Qty: 270 2RF Dose Instruction: TAKE 1 TABLET BY MOUTH THREE TIMES A DAY Rx Instructions: TAKE 1 TABLET BY MOUTH THREE TIMES A DAY metformin 1,000 mg tablet 500 mg PO DAILY Qty: 180 3RF pantoprazole 40 mg tablet,delayed release (DR/EC) 40 mg PO DAILY Qty: 90 3RF Rx Instructions: TAKE 1 TABLET BY MOUTH EVERY MORNING Ozempic 2 mg/dose (8 mg/3 mL) pen injector 2 mg subcut WEEKLY Qty: 3 0RF Follow-up/Referrals: Markus Grimaldo MD [Primary Care Provider] - Time of Disposition: 15:20 Quality NIHSS Nursing Documentation ED NIHSS nursing documentation: reviewed/agree
== END 2024-07-14 15:34 | disposition home or self-care (01) ==
PROVIDERS: Emergency Provider Nurse Practitioner Family; PCP Family Medicine Adolescent Medicine
DX: M72.2 Plantar fascial fibromatosis (principal); Z87.891 Personal history of nicotine dependence; I25.110 Atherosclerotic heart disease of native coronary artery with unstable angina pectoris; E11.42 Type 2 diabetes mellitus with diabetic polyneuropathy; K21.9 Gastro-esophageal reflux disease without esophagitis; I25.2 Old myocardial infarction; Z96.642 Presence of left artificial hip joint; Z95.5 Presence of coronary angioplasty implant and graft
CPT/HCPCS: 99213; G0463

== ENCOUNTER 2024-12-24 10:08 | Emergency (ER) | payer OTHER, SELFPAY ==
--- NOTE | ~2024-12-24 | XR_ITS ---
Lumbosacral Spine: AP and lateral views Clinical History: Pain Findings: No acute fracture evident. Probable minimal grade 1 anterolisthesis of L3 over L4. There is severe degenerative signs of the lumbar spine. There is severe facet arthropathy and lumbar spine. T here is mild levoscoliosis of the thoracolumbar spine. The sacroiliac joints are normally outlined. Impression: Severe degenerative spondylosis of the lumbar spine, with associated mild levoscoliosis. Reviewed, dictated and finalized at location M. Impression: Severe degenerative spondylosis of the lumbar spine, with associated mild levos coliosis.
--- OUTSIDE RECORDS SUMMARY | 2024-12-24 10:12 | XMS_ITS | Clinical Summary ---
Author Organization [facility] [address] Address [address] [place] [address] Care Team Providers Care Environmental Remediation Consultant Name Role Phone Markus Grimaldo MD Primary Care Prov ider Allergies Active Allergy Reactions Criticality Noted Date Comments Iodinated Contrast Media Anaphylaxis High 11/29/2019 Shellfish Derived Anaphylaxis High Medications aspirin (ASPIR-81) 81 mg tablet take 1 Tablet by oral route every day 0 0 5 Active Additional Information Patient taking differently:81 mgoral Nightly, Indications: prevention of thrombosis, Reported on 03/23/2023 EPINEPHrine (EPIPEN) 0.3 mg/0.3 mL injection syringe inject 0.3 milliliter by intramuscular route once as needed for anaphylaxis 0 0 5 Active Additional Information Patient taking differently: 1 Syringe subcutaneous As needed, Indications: Anaphylaxis, Reported on 03/23/2023 insulin glargine (LANTUS) 100 unit/mL injection inject by subcutaneous route as per insulin protocol 0 vial 0 5 Active Additional Information Patient taking differently: 46 Units subcutaneous Nightly, NOT TAKING, Indications: type 2 diabetes mellitus, Reported on 11/29/2019 simvastatin (ZOCOR) 20 mg tablet take 1 tablet by oral route every day at bedtime 0 0 5 Active Additional Information Patient taking differently:20 mgoral Nightly, Indications: hyperlipidemia, Reported on 03/23/2023 metFORMIN (GLUCOPHAGE) 1,000 mg tablet take 1 tablet by oral route 2 times every day with morning and evening meals 0 0 5 Active Additional Information Patient taking differently:1,000 mgoral 2 times daily with meals (bkfst, dinner), Indications: type 2 diabetes mellitus, Reported on 03/23/2023 nitroglycerin (NITROSTAT) 0.[address] 1 tablet by sublingual route at the 1st sign of attack; may repeat every 5 min until relief; if pain persists after 3 tablets in 15 min, prompt medical attention is recommended 0 0 6 Active Additional Information Patient taking differently:0.4 mgsublingual Every 5 min PRN, chest pain, Reported on 03/23/2023 fosinopril (MONOPRIL) 40 mg tablet take 1 tablet by oral route every day 0 0 5 Active Additional Information Patient taking differently:40 mgoral Daily (early AM), Indications: hypertension, Reported on 03/23/2023 omeprazole (PriLOSEC) 20 mg capsuleIndicat ions:GERD Take 1 capsule (20 mg total) by mouth electronic repair troubleshooter before breakfast Active gabapentin (NEURONTIN) 600 mg tabletIndicati ons:Neuropathi c Pain Take 1 tablet (600 mg total) by mouth 3 (three) times a day Taking 800 mg 3 times a day. Active furosemide (LASIX) 80 mg tabletIndicati ons:hypertensi on Take 1 tablet (80 mg total) by mouth electronic repair troubleshooter before breakfast 0 Active Bystolic 20 mg tablet Take 1 tablet (20 mg total) by mouth electronic repair troubleshooter before breakfast 0 Active NIFEdipine CC 90 mg 24 hr tablet TAKE 1 TABLET BY MOUTH EVERY DAY 30 tablet 10 2 Active Mounjaro 2.5 mg/0.5 mL pen injector INJECT 2.5 MG (0.5 ML) SUBCUTANEOUSLY WEEKLY FOR 4 WEEKS 4 Active Active Problems Problem Noted Date Diagnosed Date HTN (hypertension) 12/06/2019 HLD (hyperlipidemia) 12/06/2019 Type 2 diabetes mellitus 12/06/2019 Risk factors for obstructive sleep apnea 020 Primary osteoarthritis of left hip 11/21/2019 Overview (11/21/2019): Added automatically from request for surgery [id number] Morbid obesity with BMI of 45.0-49.9, adult 09/17 Coronary artery disease invo lving paimi[place] coronary artery of pa[place] heart without angina pectoris 03/30/2017 S/P CABG (coronary artery bypass graft) 03/30/20 17 Surgical History Surgery Date Site/Laterality Comments CARDIAC STENT PLACEMENT 01/2016, 08/2001 PALOMO to mid RCA, 08/2001 Stents X 2 CORONARY ARTERY BYPASS GRAFT 07/19/2002 - 08/18/2002 2 vessels per pt HI RPR ANOM CORONARY ARTERY PULM ART ORIGIN GRAFT STERNAL WOUND CLOSURE 10/17/2002 - 11/15/2002 REDUCTION MAMMAPLASTY 10/18/2003 - 11/16/2003 HYSTERECTOMY 07/19/1985 - 07/18/1986 COLONOSCOPY 07/19/2017 - 07/18/2018 Multiple-- Last 2018 JOINT REPLACEMENT HIP SURGERY Medical History Medical History Date Comments Myocardial infarction (HCC) CAD (coronary artery disease) s/ p stents X 2 in 2001, s/p CABG 2002 and PALOMO to mid RCA in 01/2016 Type 2 diabetes mellitus (HCC) D xd ~2015 At risk for obstructive sleep apnea STOP BANG= 6 on 11/29/2019; Pt states negative sleep study done ~2014 at [facility] Hypertension Dxd 2002 Hyperlipidemia Treated with sta tin Former smoker Quit 2001 Family History Medical History Relation Name Comments Other Brother 2 Alive and well; Heart attack Father Myocardial infa rction; Other Mother Unknown; Heart attack Sister 2 Other Sister 2 Alive and well; Anesthesia problems Neg Hx Relation Name Status Comments Brother 1 Alive Brother 2 Father (Age 63) FAtal [place] Mother (Age 61) Sister 1 Alive Sister 2 (Age 58) Sister 3 (Age 59) Social History Tobacco Use Types Packs/Day Years Used Date Smoking Tobacco: Former Cigarettes 2 28 1 974 - 2001 Smokeless Tobacco: Never Tobacco Cessation:Counseling Given: Not Answered Alcohol Use Standard Drinks/Week Comments Yes 3 (1 standard drink = 0.6 oz pur e alcohol) PHQ-2 Answer Date Recorded PHQ-2 Total Score (If total score is 3 or more points, staff should administer the PHQ-9) 0 12/07/2019 Comments No Sex and Gender Information Value Date Recorded Sex Assigned at Not on file 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 Gender Identity Not on file Sexual Orientation Not on file Obstetrics History Last Filed Vital Signs Vital Sign Reading Time Taken Comments Blood Pressure 130/64 03/23/2024 10:51 AM CDT Pulse 72 03/23/2024 10:51 AM CDT Temperature 36.5 C (97.7 F) 12/08/2019 2:44 AM CDT Respiratory Rate 20 12/08/2019 2:44 AM CDT Oxygen Saturation 95% 03/23/2024 10:51 AM CDT Inhaled Oxygen Concentration - - Weight 100.2 kg (221 lb) 03/23/2024 10:51 AM CDT Height 152.4 cm (5') 03/23/2024 10:51 AM CDT Body Mass Index 43.16 03/23/2024 10:51 AM CDT Plan of Treatment Health Maintenance Due Date Last Done Comments Albumin Creatinine Ratio, Urine 1954 Breast Cancer Screening-Mammogram 1954 Colon Cancer Screening-Colonoscopy 1954 Hepatitis C Screening 1954 Osteoporosis Screening-Bone Density Scan 1954 Dilated Eye Exam 1954 Foot Exam 1954 DTaP/Tdap/Td Vaccine (1 - Tdap) 1965 Hepatitis B Screening 01/14/1972 Pneumococcal vaccine 65+ (1 of 2 - PCV) 1973 Zoster Vaccine (1 of 2) 01/14/2004 Well Visit 65+ 2019 Hemoglobin A1C 05/31/2020 11/29/2019 Depression Screening 11/20/2020 11/21/2019, 11/21/19 20 Fall Risk Assessment 12/07/2020 12/08/2019 eGFR 12/07/2020 12/08/2019, 11/29/2019 Influenza Vaccine (Season Ended) 2025 Lipid Panel 03/23/2025 03/23/2024, 08/0 10/2022, 03/19/2022, Additional history exists Medical Devices Implanted Type Area Animal Keeper Head Device Identifier Shelf Expiration Date Model / Serial / Lot DepCactus Orthopaedics Inc [id number] Cup Acetabular Bi Mentum Od49mm Femoral Proximal Press Fit - Sn/A - [id number] Implanted:Qty: 1 on 12/07/2019 by Cong Izaguirre MD at [facility] Other - see comments Left: Hip Depuy Orthopaed[employer] Inc 07/19/2023 [id number] / N/A / [id number] Depuy [employer]ed[employer] Inc [id number] Liner Acetabular Bi Mentum Polyethylene Od49mm Id28mm Femoral Proximal - Sn/A - [id number] Implanted:Qty: 1 on 12/07/2019 by Cong Izaguirre MD at [facility] Other - see comments Left: Hip [employer]uy [employer] Inc 01/16/2024 [id number] / N/A / [id number] Depuy [employer] Inc [id number] Articul/Josh 28mm Cementless Hip +1.5mm 07/01 Taper Head Femoral Latex Free - Sn/A - [id number] Implanted:Qty: 1 on 12/07/2019 by Cong Izaguirre MD at [facility] Other - see comments Left: Hip [employer]uy [employer] Inc [id number] 07/18/2024 [id number] / N/A / [id number] Depuy [employer]opaed[employer] Inc [id number] Actis Collared Hip 07/01 3 Standard Offset Stem Femoral - Sn/A - [id number] Implanted:Qty: 1 on 12/07/2019 by Cong Izaguirre MD at [facility] Other - see comments Left: Hip [employer] Inc [id number] 02/15/2029 [id number] / N/A / [id number] Procedures Procedure Name Priority Date/Time Associated Diagnosis Comments POCT LIPID PANEL Routine 03/23/2024 11:0 5 AM CDT Atherosclerosis of paimi[place] coronary artery of paimi[place] heart without angina pectoris EGFR STAT 12/08/2019 2:56 AM CDT HEMOGLOBIN A1C Routine 11/29/2019 12:11 PM CDT Left hip pain from Last 3 Months or Most Recently Relevant to Health Maintenance Results * POCT lipid panel (03/23/2024 11:05 AM CDT) Cholesterol, POC 121 mg/dL Comment:GLU = 92 HDL, POC 24 mg/dL Triglycerides, POC 171 mg/dL LDL Cholesterol POC 64 mg/dL Chol/HDL Ratio, POC 2.7 Non-HDL Cholesterol, POC 98 mg/dL Cholesterol Total, POC 121 mg/dL Capillary blood 03/23/2024 1 1:05 AM CDT us Brent Naranjo MD POINT OF CARE TEST ORDER ARVIN Final Result * eGFR (12/08/2019 2:56 AM CDT) eGFR 53 mL/min/1.7 3 m2 IRIS JACKMAN Comment: Interpretive Data Reference Interval Normal >/= 90 mL/min/1.73m2 Mildly decreased* 60 - 89 mL/min/1.73m2 Mildly to moderately decreased 45 - 59 mL/min/1.73m2 Moderately to severely decreased 30 - 44 mL/min/1.73m2 Severely decreased 15 - 29 mL/min/1.73m2 Kidney Failure < 15 mL/min/1.73m2 *Relative to young adult level If -Polish multiply value by 1.16. Estimated glomerular filtration rate is determined by the CKD-EPI equation recommended by the National Kidney Foundation (KDIGO 2012 Clinical Practice Guideline for the Evaluation and Management of Chronic Kidney Disease. Kidney Intnl Suppl Jul 2012;3:1). The CKD-EPI equation should not be used for patients with unstable renal function and has not been validated in children and those over 70. Current interpretive data was last reviewed 2016. Blood specimen (specimen) 12/08/2019 2:56 AM CDT 12/08/2019 4:34 AM CDT us Cong Izaguirre MD LAB BLOOD ORDERABLES Geeta l Result [facility] [address] [facility]. Department [place] [address] * (ABNORMAL) Hemoglobin A1c (11/29/2019 12:11 PM CDT) Hgb A1C 7.2(H) 4.0 - 5.6 % IRIS JACKMAN Comment:Testing performed by : [facility], [address], [place]., [address] Estimated Average Glucose 160 mg/dL IRIS JACKMAN Comment: The ADA recommends reporting an estimated Average Glucose (eAG) with all Hemoglobin A1c results using the equation derived from a study of 507 normal and diabetic adults. Minority populations were underrepresented and children were not included. (Diabetes Care 31:9938-4892, 2008). The eAG is not equivalent to a fasting glucose. Testing performed by: [facility], [facility] [facility], [place]., [address] Blood specimen (specimen) 11/29/2019 12:11 PM CDT 11/29/2019 2:03 PM CDT Cong Izaguirre MD LAB BLOOD ORDERABLES Geeta perkins Result [facility] [address] [facility]. [place] [address] from Last 3 Months or Most Recently Relevant to Health Maintenance Insurance [facility] MEDICARE [facility] Advance Directives For more information, please contact: [phone] * Full Code (Latest Code Status on File) Date Activated Date Inactivated Comments 12/07/2019 1:53 PM 12/08/2019 1:44 PM Care Teams Environmental Remediation Consultant Relationship Specialty Start Date End Date Markus Grimaldo MD [address] [place], [place] [id number] PCP - General 10/16/16
--- OUTSIDE RECORDS SUMMARY | 2024-12-24 10:12 | XMS_ITS | Referral Summary ---
Author Organization [facility] [address] Address [address] [place] [address] Care Team Providers Care Reconnaissance Crewmember Name Role Phone Markus Grimaldo MD Primary [...] 1 capsule (20 mg total) by mouth early childhood aide classroom before breakfast Active gabapentin (NEURONTIN) 600 mg tabletIndicati ons:Neuropathi c Pain Take 1 tablet (600 mg total) by mouth 3 (three) times a day Taking 800 mg 3 times a day. Active furosemide (LASIX) 80 mg tabletIndicati ons:hypertensi on Take 1 tablet (80 mg total) by mouth early childhood aide classroom before breakfast 0 Active Bystolic 20 mg tablet Take 1 tablet (20 mg total) by mouth early childhood aide classroom before breakfast 0 Active NIFEdipine CC 90 [...] (11/21/2019): Added automatically from request for surgery [id number] Morbid obesity with BMI of 45.0-49.9, adult 09/17 Coronary artery disease invo lving [place] coronary artery of [place]ongo heart without angina pectoris 03/30/2017 S/P CABG (coronary artery bypass graft) 03/30/20 17 Social History Tobacco Use Types Packs/Day Years Used Date Smoking Tobacco: Former Cigarettes 2 28 1 974 - 2002 Smokeless Tobacco: Never Tobacco Cessation:Counseling Given: Not [...] on file 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 Gender Identity Not on file Sexual Orientation Not on file Last Filed Vital Signs Vital Sign Reading [...] 03/23/2024 10:51 AM CDT Plan of Treatment Not on file Medical Devices Implanted Type Area Sand Slinger Device Identifier Shelf Expiration Date Model / Serial / Lot Depuy Orthopaedics Inc [id number] Cup Acetabular Bi Mentum Od49mm Femoral Proximal Press Fit - Sn/A - [id number] Implanted:Qty: 1 on 12/07/2019 by Cong Izaguirre MD at [facility] Other - see comments Left: Hip [employer] Inc 07/19/2023 [id number] / N/A / [id number] Depuy [employer] [id number] Liner Acetabular Bi Mentum Polyethylene Od49mm Id28mm Femoral Proximal - Sn/A - [id number] Implanted:Qty: 1 on 12/07/2019 by Cong Izaguirre MD at [facility] Other - see comments Left: Hip [employer] 01/16/2024 [id number] / N/A / [id number] [employer] [id number] Articul/Josh 28mm Cementless Hip +1.5mm 07/01 Taper Head Femoral Latex Free - Sn/A - [id number] Implanted:Qty: 1 on 12/07/2019 by Cong Izaguirre MD at [facility] Other - see comments Left: Hip [employer] Inc [id number] 07/18/2024 [id number] / N/A / [id number] Dep[employer] [id number] Actis Collared Hip 07/01 3 Standard Offset Stem Femoral - Sn/A - [id number] Implanted:Qty: 1 on 12/07/2019 by Cong Izaguirre MD at [facility] Other - see comments Left: Hip [employer] [id number] 02/15/2029 [id number] / N/A / [id number] Procedures Procedure Name Priority Date/Time Associated Diagnosis Comments POCT LIPID PANEL Routine 03/23/2024 11:0 5 AM CDT Atherosclerosis of mor[place] coronary artery of morongo heart without angina pectoris EGFR STAT 12/08/2019 [...] Capillary blood 03/23/2024 1 1:05 AM CDT Brent Naranjo MD POINT OF CARE TEST [...] mL/min/1.73m2 *Relative to young adult level If -Namibian multiply value by 1.16. Estimated glomerular filtration [...] 2:56 AM CDT 12/08/2019 4:34 AM CDT Cong Izaguirre MD LAB BLOOD ORDERABLES Geeta perkins Result [facility] [address] [facility]. Department [place] [address] * (ABNORMAL) Hemoglobin A1c (11/29/2019 12:11 PM CDT) Hgb A1C 7.2(H) 4.0 - 5.6 % IRIS JACKMAN Comment:Testing performed by : [facility], [facility] [facility], [place]., [address] Estimated Average Glucose 160 mg/dL IRIS JACKMAN Comment: The ADA recommends reporting an estimated Average Glucose (eAG) with all Hemoglobin A1c results using the equation derived from a study of 507 normal and diabetic adults. Minority populations were underrepresented and children were not included. (Diabetes Care 31:4675-4178, 2008). The eAG is not equivalent to a fasting glucose. Testing performed by: [facility], [address], [place]., [address] Blood specimen (specimen) 11/29/2019 12:11 PM CDT 11/29/2019 2:03 PM CDT us Cong Izaguirre MD LAB BLOOD ORDERABLES Geeta perkins Result [facility] [address] [facility]. [place] [address] from Last 3 Months or Most Recently Relevant to Health Maintenance Insurance [facility] MEDICARE [facility] Advance Directives For more information, please contact: [phone] * Full Code (Latest Code Status on File) Date Activated Date Inactivated Comments 12/07/2019 1:53 PM 12/08/2019 1:44 PM Care Teams Reconnaissance Crewmember Relationship Specialty Start Date End Date Markus Grimaldo MD [address] [place] [address] PCP - General 10/16/16
--- OUTSIDE RECORDS SUMMARY | 2024-12-24 10:12 | XMS_ITS | Clinical Summary ---
Author Organization [facility] Address [address] [place] [address] Care Team Providers Care Supply Chain Associate Name Role Phone Unavailable Primary Care Provider Unavailabl e Source Comments [facility] [employer],non-owned Affiliates and Associated Physician Practices is amultiple site organization consisting of ambulatory clinics and hospital sitesin [place], [place], [place] and [place]. This disclosure is being madepursuant to the Care Everywhere program and may not contain all information available regarding this patient. Last updated 18.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 [employer] Gender Identity Not on file Sexual Orientation Not on file Plan of Treatment Health Maintenance Due Date Last Done Comments BONE DENSITY TESTING 1954 COLOGUARD (AGES 45-75) - COL ON CA SCREENING 1954 COLON MONITORING 1954 COLONOSCOPY - COLON CA SCREENING 1954 CT COLONOGRAPHY - COLON CA SCREENING 1954 Colorectal Cancer Screening 1954 FIT - COLON CA SCREENING 1954 FLEX SIG - COLON CA SCREENING 1954 LIPID TESTING 1954 MAMMOGRAM 1954 MEDICARE AWV 12 MONTHS 1954 HEPATITIS C SCREENING 01/09/1972 DTAP/TDAP/TD VACCINES (1 - Tdap) 1973 PNEUMOCOCCAL VACCINE 50+ (1 of 1 - PCV) 01/14/2004 ZOSTER VACCINE (1 of 2) 01/14/2004 COVID-19 VACCINE ( - 2023-2 5 season) 2024 DEPRESSION SCREENING 07/19/2024 INFLUENZA VACCINE (Season Ended) 2025 Respiratory Syncytial Virus (RSV) Vaccine Pt: or over 60 yrs (1 - 1-dose 75+ series) 2029 HEPATITIS B VACCINE Aged Out No longe r eligible based on patient's age to complete this topic HIB VACCINE Aged Out No longer eligi ble based on patient's age to complete this topic HPV VACCINE Aged Out No longer eligi ble based on patient's age to complete this topic MENINGOCOCCAL (Group B) VACC INE SHARED DECISION-MAKING Aged Out No longer eligibl e based on patient's age to complete this topic MENINGOCOCCAL GROUPS A/C/Y/W VACCINE Aged Out No longer eligible b ased on patient's age to complete this topic Insurance [facility] MEDICARE
[2024-12-24 10:13] VITALS: BP 125/56; PULSE 85; RESP 20; TEMP 36.6; O2SAT 98
--- OUTSIDE RECORDS SUMMARY | 2024-12-24 11:37 | XMS_ITS | Referral Summary ---
Author Organization [facility] [address] Address [address] [place] [address] Care Team Providers Care Steak Sauce Maker Name Role Phone Markus Grimaldo MD Primary [...] 1 capsule (20 mg total) by mouth speech therapist early intervention before breakfast Active gabapentin (NEURONTIN) 600 mg tabletIndicati ons:Neuropathi c Pain Take 1 tablet (600 mg total) by mouth 3 (three) times a day Taking 800 mg 3 times a day. 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 Gender Identity Not on file Sexual Orientation [...] on file Medical Devices Implanted Type Area Glass Tinter Device Identifier Shelf Expiration Date Model / Serial / Lot Depuy Orthopaed[employer] Inc [id number] Cup Acetabular Bi Mentum Od49mm Femoral Proximal Press Fit - Sn/A - [id number] Implanted:Qty: 1 on 12/07/2019 by Cong Izaguirre MD at [facility] Other - see comments Left: Hip [employer]uy [employer] Inc 07/19/2023 [id number] / N/A / [id number] Depuy [employer] Inc [id number] Liner Acetabular Bi Mentum Polyethylene Od49mm Id28mm Femoral Proximal - Sn/A - [id number] Implanted:Qty: 1 on 12/07/2019 by Cong Izaguirre MD at [facility] Other - see comments Left: Hip [employer] Inc 01/16/2024 [id number] / N/A / [id number] [employer] Inc [id number] Articul/Josh 28mm Cementless Hip +1.5mm 07/01 Taper Head Femoral Latex Free - Sn/A - [id number] Implanted:Qty: 1 on 12/07/2019 by Cong Izagurire MD at [facility] Other - see comments Left: Hip [employer] Inc [id number] 07/18/2024 [id number] / N/A / [id number] Dep[employer] Inc [id number] Actis Collared Hip 07/01 3 Standard Offset Stem Femoral - Sn/A - [id number] Implanted:Qty: 1 on 12/07/2019 by Cong Izaguirre MD at [facility] Other - see comments Left: Hip [employer] Inc [id number] 02/15/2029 [id number] / N/A / [id number] Procedures Procedure Name Priority Date/Time Associated Diagnosis Comments POCT LIPID PANEL Routine 03/23/2024 11:0 5 AM CDT Atherosclerosis of [place] coronary artery of [place] heart without angina pectoris EGFR STAT 12/08/2019 [...] mL/min/1.73m2 *Relative to young adult level If -Eritrean multiply value by 1.16. Estimated glomerular filtration [...] BLOOD ORDERABLES Geeta perkins Result [facility] [address] [facility]. Department [place] [address] * (ABNORMAL) Hemoglobin A1c (11/29/2019 12:11 PM CDT) Hgb A1C 7.2(H) 4.0 - 5.6 % IRIS JACKMAN Comment:Testing performed by : [facility], [facility] [facility], [place]., [address] Estimated Average Glucose 160 mg/dL IRIS JACKMAN Comment: The ADA recommends reporting an estimated Average Glucose (eAG) with all Hemoglobin A1c results using the equation derived from a study of 507 normal and diabetic adults. Minority populations were underrepresented and children were not included. (Diabetes Care 31:1101-7309, 2008). The eAG is not equivalent to a fasting glucose. Testing performed by: [facility], [address] [facility], [place]., [address] Blood specimen (specimen) 11/29/2019 12:11 PM CDT 11/29/2019 2:03 PM CDT us Cong Izaguirre MD LAB BLOOD ORDERABLES Geeta perkins Result [facility] [address] [facility]. Department [place] [address] from Last 3 Months or Most Recently Relevant to Health Maintenance Insurance [facility]IC[facility] Advance Directives For more information, please contact: [phone] * Full Code (Latest Code Status on File) Date Activated Date Inactivated Comments 12/07/2019 1:53 PM 12/08/2019 1:44 PM Care Teams Steak Sauce Maker Relationship Specialty Start Date End Date Markus Grimaldo MD [address] [place] [address] PCP - General 10/16/16
--- OUTSIDE RECORDS SUMMARY | 2024-12-24 11:37 | XMS_ITS | Clinical Summary ---
Author Organization [facility] Address [address] [place] [address] Care Team Providers Care Proof Technician Name Role Phone Unavailable Primary Care Provider Unavailabl e Source Comments [facility],non-owned Affiliates and Associated Physician Practices is amultiple site organization consisting of ambulatory clinics and hospital sitesin [place], [place], [place] and [place]. This disclosure is being madepursuant to the Care Everywhere program and may not contain all information available regarding this patient. 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
--- OUTSIDE RECORDS SUMMARY | 2024-12-24 11:37 | XMS_ITS | Clinical Summary ---
Author Organization [facility] [address] Address [address] [place] [address] Care Team Providers Care Pick And Shovel Man Name Role Phone Markus Grimaldo MD Primary [...] 1 capsule (20 mg total) by mouth housesmith before breakfast Active gabapentin (NEURONTIN) 600 mg tabletIndicati ons:Neuropathi c Pain Take 1 tablet (600 mg total) by mouth 3 (three) times a day Taking 800 mg 3 times a day. Active furosemide (LASIX) 80 mg tabletIndicati ons:hypertensi on Take 1 tablet (80 mg total) by mouth housesmith before breakfast 0 Active Bystolic 20 mg tablet Take 1 tablet (20 mg total) by mouth housesmith before breakfast 0 Active NIFEdipine CC 90 [...] (11/21/2019): Added automatically from request for surgery [id number] Morbid obesity with BMI of 45.0-49.9, adult 09/17 Coronary artery disease invo lving [place] coronary artery of [place] heart without angina pectoris 03/30/2017 S/P CABG (coronary artery bypass graft) 03/30/20 17 Surgical History Surgery Date Site/Laterality Comments CARDIAC STENT PLACEMENT 01/2016, 08/2001 PALOMO to mid RCA, 08/2001 Stents X 2 CORONARY ARTERY BYPASS GRAFT 07/19/2002 - 08/18/2002 2 vessels per pt [place] RPR ANOM CORONARY ARTERY PULM ART ORIGIN [...] states negative sleep study done ~2014 at [facility] Hypertension Dxd 2002 Hyperlipidemia Treated with [...] on file 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 Gender Identity Not on file Sexual Orientation [...] history exists Medical Devices Implanted Type Area Trimmer Sorter Device Identifier Shelf Expiration Date Model / Serial / Lot DepXylitol [place] [employer] [id number] Cup Acetabular Bi Mentum Od49mm Femoral Proximal Press Fit - Sn/A - [id number] Implanted:Qty: 1 on 12/07/2019 by Cong Izaguirre MD at [facility] Other - see comments Left: Hip [employer]uy Orth[employer]ed[employer] Inc 07/19/2023 [id number] / N/A / [id number] Depuy Orth[employer]ed[employer] Inc [id number] Liner Acetabular Bi Mentum Polyethylene Od49mm Id28mm Femoral Proximal - Sn/A - [id number] Implanted:Qty: 1 on 12/07/2019 by Cong Izaguirre MD at [facility] Other - see comments Left: Hip [employer]uy Orth[employer] Inc 01/16/2024 [id number] / N/A / [id number] Depuy Orth[employer] [id number] Articul/Josh 28mm Cementless Hip +1.5mm 07/01 Taper Head Femoral Latex Free - Sn/A - [id number] Implanted:Qty: 1 on 12/07/2019 by Cong Izaguirre MD at [facility] Other - see comments Left: Hip [employer] Inc [id number] 07/18/2024 [id number] / N/A / [id number] Depuy Orthopaed[employer] Inc [id number] Actis Collared Hip 07/01 3 Standard Offset Stem Femoral - Sn/A - [id number] Implanted:Qty: 1 on 12/07/2019 by Cong Izaguirre MD at [facility] Other - see comments Left: Hip [employer] [id number] 02/15/2029 [id number] / N/A / [id number] Procedures Procedure Name Priority Date/Time Associated Diagnosis Comments POCT LIPID PANEL Routine 03/23/2024 11:0 5 AM CDT Atherosclerosis of [place] coronary artery of [place] heart without angina pectoris EGFR STAT 12/08/2019 [...] mL/min/1.73m2 *Relative to young adult level If -[place] Sudanese multiply value by 1.16. Estimated glomerular filtration [...] MD LAB BLOOD ORDERABLES Geeta l Result [facility] [address] [facility]. [place] [address] * (ABNORMAL) Hemoglobin A1c (11/29/2019 12:11 PM CDT) Hgb A1C 7.2(H) 4.0 - 5.6 % IRIS JACKMAN Comment:Testing performed by : [facility], [address], [place]., [address] Estimated Average Glucose 160 mg/dL IRIS JACKMAN Comment: The ADA recommends reporting an estimated Average Glucose (eAG) with all Hemoglobin A1c results using the equation derived from a study of 507 normal and diabetic adults. Minority populations were underrepresented and children were not included. (Diabetes Care 31:0262-7603, 2008). The eAG is not equivalent to a fasting glucose. Testing performed by: [facility], [facility], [place]., [address] Blood specimen (specimen) 11/29/2019 12:11 PM CDT 11/29/2019 2:03 PM CDT Cong Izaguirre MD LAB BLOOD ORDERABLES Geeta perkins Result [facility] [address] [facility]. [place] [address] from Last 3 Months or Most Recently Relevant to Health Maintenance Insurance [facility] H[facility]/PPO Address: [address] [address] [place] [address] MEDICARE [facility] Advance Directives For more information, please contact: [phone] * Full Code (Latest Code Status on File) Date Activated Date Inactivated Comments 12/07/2019 1:53 PM 12/08/2019 1:44 PM Care Teams Pick And Shovel Man Relationship Specialty Start Date End Date Markus Grimaldo MD [address] [place], [place] [id number] PCP - General 10/16/16
[2024-12-24 11:39] LABS: Basophils Absolute Auto 0.1 K/mm3 (0.0-0.1); Basophils Percent Auto 0.5 % (0.2-1.2); Eosinophils Absolute Auto 0.4 K/mm3 (0-0.3); Eosinophils Percent Auto 4.4 % (0-4.4); Hematocrit 44.8 % (37.0-47.0); Hemoglobin 13.8 g/dL (12.0-15.0); Immature Granulocyte Absolute 0.02 K/mm3 (0.00-0.031); Immature Granulocyte Percent A 0.2 % (0-0.5); Lymphocytes Absolute Auto 2.33 K/mm3 (0.9-3.2); Lymphocytes Percent Auto 23.4 % (18.3-44.2); Mean Corpuscular HGB Conc 30.8 g/dl (32-36); Mean Corpuscular Hemoglobin 28.9 pg (26-34); Mean Corpuscular Volume 93.9 fl (80-100); Mean Platelet Volume 9.7 fl (7.4-10.4); Monocytes Absolute Auto 1.1 K/mm3 (0.1-0.6); Monocytes Percent Auto 10.9 % (2.6-8.5); Neutrophils Percent Auto 60.6 % (45.5-73.1); Platelet Count Result 316 k/mm3 (150-375); Red Blood Count 4.77 M/mm3 (4.2-5.4)
[2024-12-24 11:45] LABS: Add Urine Microscopic? YES; Appearance Urine Clear (Clear); Bacteria Urine None Seen /hpf; Bilirubin Urine Negative (Negative); Blood Urine Negative (Negative); Color Urine Yellow (Yellow); Glucose Urine UA Negative (Negative); Ketones Urine Negative (Negative); Leukocyte Esterase Ur Trace LEU/UL (Negative); Nitrate Urine Negative (Negative); Protein Urine Negative (Negative); RBC Urine 0-2 /hpf (0-2); Specific Grav Ur 1.009 (1.001-1.035); Squamous Epithelial Cell Urine None Seen /hpf (Few); Urobilinogen Urine 0.2 mg/dL (<2.0); WBC Urine 0-5 /hpf (0-3)
[2024-12-24 11:53] LABS: Alanine Aminotransferase 21 U/L (6-35); Albumin Level 4.7 g/dL (3.5-5.1); Alkaline Phosphatase 107 U/L (38-126); Anion Gap 13 mmol/L (4-12); Aspartate Amino Transferase 40 U/L (14-36); Bilirubin,Total 0.5 mg/dL (0.2-1.3); Blood Urea Nitrogen 25 mg/dL (7-17); Calcium 10.4 mg/dL (8.4-10.2); Carbon Dioxide 26 mmol/L (22-30); Chloride 103 mmol/L (98-107); Estimated CRCL calculation 21 ml/min; Estimated Glomerular Filt Rate 32; Glucose 81 mg/dL (65-110); Potassium 4.7 mmol/L (3.4-5.0); Sodium 142 mmol/L (137-145); Total Protein 8.3 g/dL (6.3-8.2)
[2024-12-24 12:16] VITALS: BP 110/58; PULSE 73; RESP 18; O2SAT 100
--- NOTE | 2024-12-24 12:32 | PC.NURSE ---
Pt to radiology for imaging @ 6794
[2024-12-24] MEDS: SODIUM CHLORIDE 0.9% IV 1,000 ML 999 ML IV CONT (12:58)
[2024-12-24] MEDS: diazePAM INJ (*CRX) 10 MG/2 ML SYRINGE 5 MG IV PUSH (12:58)
[2024-12-24] MEDS: KETOROLAC 30 MG/ML VIAL (*BKC) 15 MG IV PUSH (12:59)
--- NOTE | 2024-12-24 13:50 | ED_ITS ---
HPI - Back Pain/Injury General Chief Complaint: Back Pain/Injury Stated Complaint: i think i have a really bad kidney infection Time Seen by Provider: 12/24/24 11:23 History of Present Illness HPI Narrative: Patient is a 69-year-old female who presents to the ER with back pain. Ongoing over the last 2 weeks. Has started going down to her right hip and down her leg. Has known arthritis some issues with her back. She is concerned she may have urinary if infection. She has chronic kidney disease. She has had pyelonephritis before. Related Data Home Medications ?Medication ?Instructions ?Recorded ?Confirmed ?Last Taken ?Type aspirin 81 mg tablet,delayed 81 mg PO DAILY 10/03/19 12/04/24 Unknown History release (Adult Low Dose Aspirin) nitroglycerin 0.4 mg sublingual 0.4 mg sublingual Q5M PRN Angina 10/03/19 12/04/24 Unknown History tablet tmqpzcst-pfo-pcea 18 mg-FA 400 1 tablet PO DAILY 03/05/22 12/04/24 Unknown History mcg-calcium 500 mg-vit K 50 mcg tablet (Women's Multivitamin) epinephrine 0.3 mg/0.3 mL 0.3 mg IM PRN PRN Anaphylaxis 04/28/23 12/04/24 Unknown History injection, auto-injector Allergies Allergy/AdvReac Type Severity Reaction Status Date / Time iodine Allergy Severe Anaphylaxis Verified 12/24/24 10:10 SHELLFISH Allergy Severe Anaphylaxis Uncoded 12/24/24 10:10 Review of Systems 2 Review of Systems: All systems reviewed & are unremarkable except as noted in HPI and below Constitutional: Constitutional: Reports no additional constitutional complaints Cardiovascular: Cardiovascular: Reports no additional cardiovascular complaints Respiratory: Respiratory: Reports no additional respiratory complaints Gastrointestinal: Gastrointestinal: Reports no additional gastrointestinal complaints Musculoskeletal: Musculoskeletal: Reports no additional musculoskeletal complaints [facility] Past Medical History Medical History Chronic GERD Heart attack Left wrist fracture Type II diabetes mellitus CAD (coronary artery disease) History of angina Peripheral neuropathy Surgical History Surgical History History of total left hip arthroplasty (11/2019) History of carpal tunnel surgery of right wrist (06/2016) History of hysterectomy with bilateral oophorectomy (1985) Hx of breast reduction, elective (2003) Hx of appendectomy (1985) Hx of CABG (2002) x2, 2003 Stented coronary artery (2015) x2 Family History Family History Father Heart disease Hypertension Acute myocardial infarction Grandparent Diabetes mellitus Sibling Diabetes mellitus Heart disease Cancer Sibling Cancer Social History Social History Social History: The patient stated that she was [employer] and just works [employer] now. 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 She has 1 child and 1 stepchild. The patient occasionally has a cocktail. The patient used to smoke but no longer does. No marijuana or illicit drugs. Patient desires to be a full code. Smoking packs per day: 2 Smoking cigarettes per day: 40.0 Years smoked: 30 Smoking pack-years: 60.00 Smoking status: Former smoker Tobacco type: cigarettes Second hand tobacco smoke exposure: No Smoking end date: 07/19/02 Alcohol intake: current Drinks per week: 2 Alcohol use details: Occasional Substance use: never Substance use type: does not use Lack of Transportation: No Lack of Food: Never True Current Housing: I Have Housing Concerned About Future Housing: No Difficulty Paying Gas/Electric Bills: No Difficulty Paying for Meds: No Currently Unemployed: No Education: High School Diploma/GED Difficulty w/ Childcare or Family Care: No Living arrangements: with family Additional living arrangements comments: Occupation/Education: occupation Additional occupation/education comments: [employer] Gender identity (if verbalized by the patient): Female Spiritual care concerns: No Exam 2 Narrative: GENERAL: Well-appearing, well-nourished, and in no acute distress. HEAD: Normocephalic, atraumatic. ENT: Mucous membranes moist. CHEST: Clear to auscultation. No respiratory distress. HEART: Regular rate and rhythm.Normal peripheral pulses. Back: No midline tenderness the T/L-spine. There is significant paraspinal muscle tenderness L3 down to the SI region on the right side. EXTREMITIES: Normal range of motion. No edema. Negative straight leg raise SKIN: Warm, dry, no rash. NEURO: Alert and oriented x3. PSYCH: Normal mood and affect. Course Course Emergency Course: Lumbar strain versus sciatica. Significant improvement with Toradol and Valium. Discussed imaging and lab results. Appropriate for discharge home. Vital Signs Vital signs: Vital Signs Temperature 97.9 F 12/24/24 10:13 Pulse Rate 85 12/24/24 10:13 Respiratory Rate 20 12/24/24 10:13 Blood Pressure 125/56 L 12/24/24 10:13 Pulse Oximetry 98 12/24/24 10:13 Temperature 97.9 F 12/24/24 10:13 Pulse Rate 69 12/24/24 14:34 Respiratory Rate 18 12/24/24 14:34 Blood Pressure 121/59 L 12/24/24 14:34 Pulse Oximetry 98 12/24/24 14:34 MDM - Back Pain/Injury Lab Data 12/24/24 11:32 12/24/24 11:32 Labs: Lab Results 12/24/24 Range/Units 11:32 WBC 10.0 (4.5-10.0) K/mm3 RBC 4.77 (4.2-5.4) M/mm3 Hgb 13.8 (12.0-15.0) g/dL Hct 44.8 (37.0-47.0) % MCV 93.9 (80-100) fl MCH 28.9 (26-34) pg MCHC 30.8 L (32-36) g/dl RDW 14.0 (11.5-14.5) % Plt Count 316 (150-375) k/mm3 MPV 9.7 (7.4-10.4) fl Immature Gran % (Auto) 0.2 (0-0.5) % Neut % (Auto) 60.6 (45.5-73.1) % Lymph % (Auto) 23.4 (18.3-44.2) % [place] % (Auto) 10.9 H (2.6-8.5) % Eos % (Auto) 4.4 (0-4.4) % Baso % (Auto) 0.5 (0.2-1.2) % Lymph # (Auto) 2.33 (0.9-3.2) K/mm3 [place] # (Auto) 1.1 H (0.1-0.6) K/mm3 Eos # (Auto) 0.4 H (0-0.3) K/mm3 Baso # (Auto) 0.1 (0.0-0.1) K/mm3 Abs Immat Gran (auto) 0.02 (0.00-0.031) K/mm3 Absolute Neuts (auto) 6.0 (1.3-6.7) K/mm3 Absolute Nucleated RBC 0.000 (0.0-0.012) K/mm3 Nucleated RBC % 0.0 (0.0-0.2) % Sodium 142 (137-145) mmol/L Potassium 4.7 (3.4-5.0) mmol/L Chloride 103 (98-107) mmol/L Carbon Dioxide 26 (22-30) mmol/L Anion Gap 13 H (4-12) mmol/L BUN 25 H (7-17) mg/dL Creatinine 1.61 H (0.7-1.0) mg/dL Estim Creat Clear Calc 21 ml/min Estimated GFR 32 L (59 - ) Glucose 81 (65-110) mg/dL Calcium 10.4 H (8.4-10.2) mg/dL Total Bilirubin 0.5 (0.2-1.3) mg/dL AST 40 H (14-36) U/L ALT 21 (6-35) U/L Alkaline Phosphatase 107 (38-126) U/L Total Protein 8.3 H (6.3-8.2) g/dL Albumin 4.7 (3.5-5.1) g/dL Urine Color Yellow (Yellow) Urine Appearance Clear (Clear) Urine pH 5.0 (5.0-9.0) Ur Specific [place] 1.009 (1.001-1.035) Urine Protein Negative (Negative) mg/dL Urine Glucose (UA) Negative (Negative) mg/dL Urine Ketones Negative (Negative) mg/dL Ur Blood (Man) Negative (Negative) Urine Nitrate Negative (Negative) Urine Bilirubin Negative (Negative) Urine Urobilinogen 0.2 (<2.0) mg/dL Leukocyte Esterase Rfl Trace H (Negative) PIERRE/UL Urine RBC 0-2 (0-2) /hpf Urine WBC 0-5 (0-3) /hpf Ur Squamous Epith Cells None seen (Few) /hpf Urine Bacteria None seen /hpf Urine Casts 3-5 Imaging Data Radiologist's impression: ITS Impressions Lumbar Spine X-Ray 12/24/24 13:10 Impression: Severe degenerative spondylosis of the lumbar spine, with associated mild levoscoliosis. Discharge Plan Discharge Clinical Impression: Sciatica Patient Disposition: Home Condition: Stable Instructions: Sciatica (ED) Additional Instructions: Please return to the emergency department if you develop severe pain that is not controlled by pain medications or if you are unable to walk because of pain or weakness. Return to the emergency department immediately if you develop fevers, loss of bowel or bladder control (dribbling of urine or having accidents you wouldn't normally have), inability to urinate, numbness of your genital or anal area, or weakness/numbness of your legs or arms as these could all be signs of a serious medical emergency. Patient Language: Tuvaluan Prescriptions: New tizanidine 2 mg capsule 2 mg PO Q8H PRN (Reason: muscle spasticity) Qty: 14 0RF No Action terbinafine HCl 250 mg tablet 250 mg PO DAILY Qty: 90 0RF aspirin [Adult Low Dose Aspirin] 81 mg tablet,delayed release (DR/EC) 81 mg PO DAILY nitroglycerin 0.4 mg tablet, sublingual 0.4 mg SUBLINGUAL Q5M PRN (Reason: Angina) Rx Instructions: do not exceed 3 doses per episode Women's Multivitamin 18 mg-400 mcg- 500 mg-50 mcg tablet 1 tablet PO DAILY epinephrine 0.3 mg/0.3 mL Auto-Injector 0.3 mg IM PRN PRN (Reason: Anaphylaxis) Rx Instructions: do not exceed 3 doses per episode furosemide 80 mg tablet 80 mg PO DAILY Qty: 90 3RF Rx Instructions: TAKE ONE TABLET BY MOUTH ONCE DAILY nebivolol 20 mg tablet 20 mg PO DAILY Qty: 90 3RF fosinopril 40 mg tablet 40 mg PO DAILY Qty: 90 3RF Rx Instructions: TAKE ONE TABLET BY MOUTH ONCE DAILY simvastatin 20 mg tablet See Rx Instructions .ROUTE .COMPLEX Qty: 90 3RF Dose Instruction: TAKE 1 TABLET BY MOUTH EVERY DAY Rx Instructions: TAKE 1 TABLET BY MOUTH EVERY DAY nifedipine 90 mg tablet extended release 90 mg PO HS Qty: 90 3RF Rx Instructions: TAKE 1 TABLET BY MOUTH EVERY DAY pantoprazole 40 mg tablet,delayed release (DR/EC) 40 mg PO DAILY Qty: 90 3RF Rx Instructions: TAKE 1 TABLET BY MOUTH EVERY MORNING Ozempic 2 mg/dose (8 mg/3 mL) pen injector 2 mg subcut WEEKLY Qty: 3 0RF Linzess 145 mcg capsule 145 mcg PO DAILY Qty: 90 3RF gabapentin 800 mg tablet See Rx Instructions .ROUTE .COMPLEX Qty: 270 2RF Dose Instruction: TAKE 1 TABLET BY MOUTH THREE TIMES A DAY Rx Instructions: TAKE 1 TABLET BY MOUTH THREE TIMES A DAY Follow-up/Referrals: Dior Cavanaugh, RULA [Primary Care Provider] - 1 Week
[2024-12-24 14:34] VITALS: BP 121/59; PULSE 69; RESP 18; O2SAT 98
== END 2024-12-24 15:34 | disposition home or self-care (01) ==
PROVIDERS: Emergency Provider Emergency Medicine; PCP Nurse Practitioner Family
DX: M54.41 Lumbago with sciatica, right side (principal); K21.9 Gastro-esophageal reflux disease without esophagitis; I25.2 Old myocardial infarction; E11.9 Type 2 diabetes mellitus without complications; I25.10 Atherosclerotic heart disease of native coronary artery without angina pectoris; Z79.82 Long term (current) use of aspirin; M19.90 Unspecified osteoarthritis, unspecified site; N18.9 Chronic kidney disease, unspecified; Z98.61 Coronary angioplasty status; Z95.1 Presence of aortocoronary bypass graft
CPT/HCPCS: 36415; 72100; 80053; 81001; 85025; 96361; 96374; 96375; 99284; J1885; J3360; J7030

== ENCOUNTER 2025-02-26 13:44 | Outpatient (CLI) | payer OTHER, SELFPAY ==
--- NOTE | ~2025-02-26 | DEXA_ITS ---
Bone Density Report Name: NATALY HERBERT I Age: 70 Sex: Female Ethnicity: White Date of : 1955 Indication: postmenopausal; screening for osteoporosis; parental hip fracture; height loss; prior fracture; hysterectomy; Referring Provider: FITO RHOADES Study: Bone densitometry was performed. Exam Date: February 26, 2025 Accession number: [id number] Bone Density: Region BMD T-score Z-score Classification AP Spine(L1-L4) 1.515 4.3 6.4 Normal Femoral Neck (Right) 0.962 1.0 2.9 Normal Total Hip (Right) 1.117 1.4 3.0 Normal World Health Organization criteria for BMD impression classify patients as: Normal (T-score at or above -1.0), Osteopenia (T-score between -1.0 and -2.5), or Osteoporosis (T-score at or below -2.5). 10-year Fracture Risk: FRAX not reported because: All T-scores for Spine Total, Hip Total, Femoral Neck at or above -1.0 Prior hip or vertebral fracture Clinical Information Provided by Patient: Have had a previous hip or vertebral fracture Has had a low trauma fracture Parent has had a hip fracture Has the following medical conditions: Hysterectomy Patient maximum height was 61.0 Menopause Age: 28 No regular weight bearing exercise Drinks caffeinated beverages Onset of menses at age 13 Number of children 1 Impression: The patient has normal bone mass. The patient has risk factors, including: parental hip fracture, previous fracture. Discussion: INCREASED RISK OF FRACTURE DUE TO HISTORY OF FRACTURE. The patient's previous fracture puts the patient at high risk of a future fracture. In untreated patients, the risk of osteoporotic fracture increases approximately two-fold for each 1.0 SD decrease in T-score. Low bone density is not the only risk factor for fracture; also consider factors such as patient's age, frailty or poor health, risk of falling, risk of injury, previous osteoporotic fracture, family history of osteoporosis, cigarette smoking, low body weight, etc. Not everyone with a low trauma fracture has osteoporosis; osteomalacia and other metabolic bone disorders should also be considered. Patients who have osteoporosis should be evaluated for specific diseases and conditions (secondary causes) that may cause or contribute to bone loss and fracture risk. National Osteoporosis Foundation (NOF) recommends pharmacologic intervention for patients with a prior hip or vertebral fracture regardless of BMD T-score. The patient should follow a healthful lifestyle (good nutrition with adequate calcium and vitamin D, and appropriate weight-bearing exercise). Follow-Up: Consider a repeat BMD and Vertebral Fracture Assessment (VFA) exam in 2 years or sooner if medically necessary, to reassess this patient's status. Reported by: RAFFAELE on 02/26/2025 2:27:00 PM. Reviewed, dictated and finalized at location A.
--- OUTSIDE RECORDS SUMMARY | 2025-02-26 14:05 | XMS_ITS | Clinical Summary ---
Author Organization [facility] [address] Address [address] [place] [address] Care Team Providers Care Recovery Collector Name Role Phone Markus Grimaldo MD Primary [...] 1 capsule (20 mg total) by mouth hazardous materials analyst before breakfast Active gabapentin (NEURONTIN) 600 mg tabletIndicati ons:Neuropathi c Pain Take 1 tablet (600 mg total) by mouth 3 (three) times a day Taking 800 mg 3 times a day. Active furosemide (LASIX) 80 mg tabletIndicati ons:hypertensi on Take 1 tablet (80 mg total) by mouth hazardous materials analyst before breakfast 0 Active Bystolic 20 mg tablet Take 1 tablet (20 mg total) by mouth hazardous materials analyst before breakfast 0 Active NIFEdipine CC 90 [...] (11/21/2019): Added automatically from request for surgery [id number] Morbid obesity with BMI of 45.0-49.9, adult 09/17 Coronary artery disease invo lving [place] coronary artery of [place] heart without angina pectoris 03/30/2017 S/P CABG (coronary artery bypass graft) 03/30/20 17 Surgical History Surgery Date Site/Laterality Comments CARDIAC STENT PLACEMENT 01/2016, 08/2001 PALOMO to mid RCA, 08/2001 Stents X 2 CORONARY ARTERY BYPASS GRAFT 07/19/2002 - 08/18/2002 2 vessels per pt [place] RPR ANOM CORONARY ARTERY PULM ART ORIGIN GRAFT STERNAL WOUND CLOSURE 10/17/2002 - 11/15/2002 REDUCTION MAMMAPLASTY 10/18/2003 - 11/16/2003 HYSTERECTOMY 07/19/1985 - 07/18/1986 COLONOSCOPY 07/19/2017 - 07/18/2018 Multiple-- Last 2017 JOINT REPLACEMENT HIP SURGERY Medical History Medical History Date Comments Myocardial infarction (HCC) CAD (coronary artery disease) s/ p stents X 2 in 2001, s/p CABG 2002 and PALOMO to mid RCA in 01/2016 Type 2 diabetes mellitus Dxd ~20 16 At risk for obstructive sleep apnea STOP BANG= 6 on 11/29/2019; Pt states negative sleep study done ~2014 at [facility] Hypertension Dxd 2002 Hyperlipidemia Treated with sta tin Former smoker Quit 2001 Family History Medical History Relation Name Comments Other Brother 2 Alive and well; Heart attack Father Myocardial infa rction; Other Mother Unknown; Heart attack Sister 2 Other Sister 2 Alive and well; Anesthesia problems Neg Hx Relation Name Status Comments Brother 1 Alive Brother 2 Father (Age 63) FAtal [place] Mother (Age 61) Sister 1 Alive Sister [...] on file 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 Gender Identity Not on file Sexual Orientation [...] 12/08/2019 eGFR 12/07/2020 12/08/2019, 11/29/2019 Influenza Vaccine (#1) 2025 Lipid Panel 03/23/2025 03/23/2024, 08/0 10/2022, 03/19/2022, Additional history exists Medical Devices Implanted Type Area Clinical Application Manager Device Identifier Shelf Expiration Date Model / Serial / Lot DepGenerationStation Orthopaedics Inc [id number] Cup Acetabular Bi Mentum Od49mm Femoral Proximal Press Fit - Sn/A - [id number] Implanted:Qty: 1 on 12/07/2019 by Cong Izaguirre MD at [facility] Other - see comments Left: Hip [employer] 07/19/2023 [id number] / N/A / [id number] [employer] [id number] Liner Acetabular Bi Mentum Polyethylene Od49mm Id28mm Femoral Proximal - Sn/A - [id number] Implanted:Qty: 1 on 12/07/2019 by Cong Izaguirre MD at [facility] Other - see comments Left: Hip [employer] 01/16/2024 [id number] / N/A / [id number] [employer] [id number] Articul/Jsoh 28mm Cementless Hip +1.5mm 07/01 Taper Head Femoral Latex Free - Sn/A - [id number] Implanted:Qty: 1 on 12/07/2019 by Cong Izaguirre MD at [facility] Other - see comments Left: Hip [employer] [id number] 07/18/2024 [id number] / N/A / [id number] Dep[employer] Inc [id number] Actis Collared Hip 07/01 3 Standard Offset Stem Femoral - Sn/A - [id number] Implanted:Qty: 1 on 12/07/2019 by Cong Izaguirre MD at [facility] Other - see comments Left: Hip [employer] [id number] 02/15/2029 [id number] / N/A / [id number] Procedures Procedure Name Priority Date/Time Associated Diagnosis Comments POCT LIPID PANEL Routine 03/23/2024 11:0 5 AM CDT Atherosclerosis of [place] coronary artery of [place] heart without angina pectoris EGFR STAT 12/08/2019 [...] mL/min/1.73m2 *Relative to young adult level If -[place] multiply value by 1.16. Estimated glomerular filtration [...] MD LAB BLOOD ORDERABLES Geeta l Result [facility] [address] [facility]. [place] [address] * (ABNORMAL) Hemoglobin A1c (11/29/2019 12:11 PM CDT) Hgb A1C 7.2(H) 4.0 - 5.6 % IRIS JACKMAN Comment:Testing performed by : [facility], [facility], [place]., [address] Estimated Average Glucose 160 mg/dL IRIS JACKMAN Comment: The ADA recommends reporting an estimated Average Glucose (eAG) with all Hemoglobin A1c results using the equation derived from a study of 507 normal and diabetic adults. Minority populations were underrepresented and children were not included. (Diabetes Care 31:4560-1063, 2008). The eAG is not equivalent to a fasting glucose. Testing performed by: [facility], [facility], [place]., [address] Blood specimen (specimen) 11/29/2019 12:11 PM CDT 11/29/2019 2:03 PM CDT Cong Izaguirre MD LAB BLOOD ORDERABLES Geeta perkins Result IRIS [facility] [address] [facility]. [place] [address] from Last 3 Months or Most Recently Relevant to Health Maintenance Insurance [facility] MEDIC[facility] Advance Directives For more information, please contact: [phone] * Full Code (Latest Code Status on File) Date Activated Date Inactivated Comments 12/07/2019 1:53 PM 12/08/2019 1:44 PM Care Teams Recovery Collector Relationship Specialty Start Date End Date Markus Grimaldo MD [address] [facility] [place] [address] PCP - General 10/16/16
--- OUTSIDE RECORDS SUMMARY | 2025-02-26 14:05 | XMS_ITS | Clinical Summary ---
Author Organization [facility] Address [address] [place] [address] Care Team Providers Care Cable Installer Repairer Name Role Phone Unavailable Primary Care Provider Unavailabl e Source Comments [facility] [employer],non-owned Affiliates and Associated Physician Practices is amultiple site organization consisting of ambulatory clinics and hospital sitesin [place], [place], [place] and [place]. This disclosure is being madepursuant to the Care Everywhere program and may not contain all information available regarding this patient. 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
== END 2025-02-26 13:45 | disposition home or self-care (01) ==
LOC: ANHIMG 13:50
PROVIDERS: PCP Nurse Practitioner Family; Visit Provider Nurse Practitioner Family
DX: Z13.820 Encounter for screening for osteoporosis (principal); Z78.0 Asymptomatic menopausal state
CPT/HCPCS: 77080